=== PATIENT | male | born 1955 | race Caucasian/White ===

== ENCOUNTER 2017-09-08 11:04 | Inpatient (IN) | payer OTHER ==
[~2017-09-08] VITALS: Ht 177.8 cm; Wt 149.0 kg
[2017-09-08 11:07] VITALS: BP 130/94; PULSE 122; RESP 22; TEMP 97.4; O2SAT 99
[2017-09-08 12:15] VITALS: BP 128/92; PULSE 122; RESP 18; O2SAT 97
[2017-09-08] MEDS ORDERED: FAMOTIDINE 20 MG/2 ML VIAL IV PUSH ONE (12:45)
[2017-09-08] MEDS ORDERED: SODIUM CHLORID 0.9% 500 ML INJ 500 ML IV ONE (12:45)
[2017-09-08] MEDS ORDERED: ONDANSETRON HCL 4 MG/2 ML VIAL IVP ONE (12:45)
--- NOTE | 2017-09-08 12:53 | PD ---
HPI Chief Complaint: Abdominal Pain Time Seen by Provider: 12:26 Travel History International Travel<30 days: No Contact w/Intl Traveler<30days: No Traveled to known affect area: No History of Present Illness HPI 62-year-old male presents to the emergency department complaining of abdominal ' tightness', pain, intermittent diarrhea, or constipation for 2-3 weeks. States in addition, he has had associated shortness of breath and leg swelling. States his shortness of breath increases with exertion but is present at rest as well. Patient states that he has been unable to pass any flatulence and has had decreased bowel movements the last 2-3 weeks as well. He has nausea with vomiting especially after eating. States he has been able to keep any food down. Says he went to Urgent Care a couple of days ago and they were concerned about his leg swelling and advised he come to the ED for this. Denies chest pain or urinary symptoms. Patient's medical history significant for diabetes and high blood pressure. States his last colonoscopy was in 2006 here at [facility]. Patient denies the use of narcotic pain medications. PFSH Past Medical History Cardiovascular Problems: Yes Diabetes: Yes Social History Tobacco Use: No Allergies-Medications (Allergen,Severity, Reaction): Coded Allergies: azithromycin (Verified Allergy, Unknown, 09/08/17) Reported Meds & Prescriptions Reported Meds & Active Scripts Active Reported Hydrochlorothiazide Unknown Strength Tab 1 Tab PO DAILY Simvastatin Unknown Strength Tab 1 Tab PO HS Nifedipine ER 24 HR (Nifedipine) 30 Mg Tab 30 Mg PO DAILY Glimepiride Unknown Strength Tab 1 Tab PO DAILY Take with breakfast or first main meal Aspirin Unknown Strength Tab 1 Tab PO DAILY Metformin (Metformin HCl) 1,000 Mg Tab 1,000 Mg PO BIDPC Review of Systems Except as stated in HPI: all other systems reviewed are Neg Physical Exam Narrative GENERAL: Well-developed well-nourished in mild distress SKIN: Focused skin assessment warm/dry. HEAD: Atraumatic. Normocephalic. EYES: Pupils equal and round. No scleral icterus. No injection or drainage. ENT: No nasal bleeding or discharge. Mucous membranes pink and moist. NECK: Trachea midline. No JVD. CARDIOVASCULAR: Tachycardic rate and rhythm. No murmur appreciated. RESPIRATORY: No accessory muscle use. Clear to auscultation. Breath sounds equal bilaterally. GASTROINTESTINAL: Protuberant, distended abdomen, diffusely tender to light palpation, hypoactive bowel sounds, no caput medusa, rashes or lesions. MUSCULOSKELETAL: No obvious deformities. No clubbing. No cyanosis. No CVA tenderness, bilateral lower extremities with +1 edema NEUROLOGICAL: Awake and alert. No obvious cranial nerve deficits. Motor grossly within normal limits. Normal speech. PSYCHIATRIC: Appropriate mood and affect; insight and judgment normal. Data Data Last Documented VS Vital Signs Date Time Temp Pulse Resp B/P (MAP) Pulse Ox O2 Delivery O2 Flow Rate FiO2 09/08/17 18:16 93 17 132/77 (95) 95 Room Air 09/08/17 11:07 97.4 Orders Orders Complete Blood Count With Diff (09/08/17 12:36) Comprehensive Metabolic Panel (09/08/17 12:36) Lipase (09/08/17 12:36) Prothrombin Time / Inr (Pt) (09/08/17 12:36) Act Partial Throm Time (Ptt) (09/08/17 12:36) Urinalysis - C+S If Indicated (09/08/17 12:36) Ct Abd/Pel W Iv Contrast(Rout) (09/08/17 12:36) Iv Access Insert/Monitor (09/08/17 12:36) Ecg Monitoring (09/08/17 12:36) Oximetry (09/08/17 12:36) NPO (09/08/17 12:36) Ondansetron Inj (Zofran Inj) (09/08/17 12:45) Electrocardiogram (09/08/17 12:36) Chest, Single Ap (09/08/17 12:36) Famotidine Inj (Pepcid Inj) (09/08/17 12:45) Troponin I (09/08/17 12:36) Sodium Chlorid 0.9% 500 Ml Inj (Ns 500 M (09/08/17 12:45) B-Type Natriuretic Peptide (09/08/17 12:52) Iohexol 350 Inj (Omnipaque 350 Inj) (09/08/17 14:09) Furosemide Inj (Lasix Inj) (09/08/17 15:15) Admit Order (Ed Use Only) (09/08/17 18:19) Labs Laboratory Tests Test 09/08/17 12:45 09/08/17 13:02 White Blood Count 9.9 TH/MM3 Red Blood Count 4.50 MIL/MM3 Hemoglobin 14.1 GM/DL Hematocrit 41.4 % Mean Corpuscular Volume 92.1 FL Mean Corpuscular Hemoglobin 31.3 PG Mean Corpuscular Hemoglobin Concent 34.0 % Red Cell Distribution Width 15.4 % Platelet Count 217 TH/MM3 Mean Platelet Volume 9.5 FL Neutrophils (%) (Auto) 77.9 % Lymphocytes (%) (Auto) 13.2 % Monocytes (%) (Auto) 7.4 % Eosinophils (%) (Auto) 0.5 % Basophils (%) (Auto) 1.0 % Neutrophils # (Auto) 7.7 TH/MM3 Lymphocytes # (Auto) 1.3 TH/MM3 Monocytes # (Auto) 0.7 TH/MM3 Eosinophils # (Auto) 0.1 TH/MM3 Basophils # (Auto) 0.1 TH/MM3 CBC Comment DIFF FINAL Differential Comment Prothrombin Time 12.5 SEC Prothromb Time International Ratio 1.2 RATIO Activated Partial Thromboplast Time 23.4 SEC Blood Urea Nitrogen 21 MG/DL Creatinine 1.24 MG/DL Random Glucose 222 MG/DL Total Protein 7.2 GM/DL Albumin 3.7 GM/DL Calcium Level 9.1 MG/DL Alkaline Phosphatase 68 U/L Aspartate Amino Transf (AST/SGOT) 37 U/L Alanine Aminotransferase (ALT/SGPT) 63 U/L Total Bilirubin 0.9 MG/DL Sodium Level 137 MEQ/L Potassium Level 4.5 MEQ/L Chloride Level 102 MEQ/L Carbon Dioxide Level 24.9 MEQ/L Anion Gap 10 MEQ/L Estimat Glomerular Filtration Rate 59 ML/MIN Troponin I 0.03 NG/ML B-Type Natriuretic Peptide 663 PG/ML Lipase 130 U/L Urine Color YELLOW Urine Turbidity CLEAR Urine pH 5.5 Urine Specific [place] 1.029 Urine Protein 100 mg/dL Urine Glucose (UA) NEG mg/dL Urine Ketones NEG mg/dL Urine Occult Blood NEG Urine Nitrite NEG Urine Bilirubin NEG Urine Urobilinogen 2.0 MG/DL Urine Leukocyte Esterase NEG Urine RBC LESS THAN 1 /hpf Urine WBC 1 /hpf Urine Hyaline Casts 34 /lpf Urine Granular Casts 1 /lpf Urine Mucus FEW /lpf Microscopic Urinalysis Comment CULT NOT INDICATED MDM Medical Decision Making Medical Screen Exam Complete: Yes Emergency Medical Condition: Yes Differential Diagnosis SBO, pancreatitis, pyelonephritis, CHF, NSTEMI Narrative Course 62-year-old male presents to the emergency department complaining of abdominal ' tightness', pain, intermittent diarrhea, or constipation for 2-3 weeks. States in addition, he has had associated shortness of breath and leg swelling. States his shortness of breath increases with exertion but is present at rest as well. Patient states that he has been unable to pass any flatulence and has had decreased bowel movements the last 2-3 weeks as well. He has nausea with vomiting especially after eating. States he has been able to keep any food down. Says he went to Urgent Care a couple of days ago and they were concerned about his leg swelling and advised he come to the ED for this. Denies chest pain or urinary symptoms. Patient's medical history significant for diabetes and high blood pressure. States his last colonoscopy was in 2006 here at [facility]. Patient denies the use of narcotic pain medications. Vital signs-tachycardic at a rate of 122, BP stable at 128/92 EKG- sinus tachycardia Labs- BNP 663, INR 1.2, Lipase 130, ALT/AST 37/63 Pt will be NPO, 500NS IVF administered judiciously as I am concerned about a CHF presentation, however he states that he has had a poor oral intake for several weeks. Last Impressions Chest X-Ray 09/08/17 1236 Signed Impressions: Service Date/Time: Friday, September 08, 2017 13:10 - CONCLUSION: 1. Moderate cardiomegaly 2. Mild basilar air space disease 3. No evidence of free air. Rene Armijo MD Abdomen/Pelvis CT 09/08/17 1236 Signed Impressions: Service Date/Time: Friday, September 08, 2017 14:02 - CONCLUSION: 1. Bilateral effusions, mild ascites and developing anasarca 2. Hepatomegaly with diffuse abnormal hepatic texture. 3. 3 cm left adrenal myelolipoma status post cholecystectomy. Rene Armijo MD Interventions Lasix 40mg IV administered for CHF symptoms. Pt did feel better, less SOB after this medication. Last colonoscopy report demonstrated poor prep so visualized colon not easily characterized. According to notes, he had an US September 03 at an urgent care facility and was discharged and advised to follow up with a PCP and GI. Patient was walked in the emergency department today but was unable to walk without dyspnea. Patient will be admitted to observation for acute, new onset congestive heart failure. Diagnosis Primary Impression: Congestive heart failure Qualified Codes: I50.9 - Heart failure, unspecified Additional Impression: Hepatomegaly Admitting Information Admitting Physician Requests: Observation Condition: Stable Johana Westfall Sep 08, 2017 12:53
[2017-09-08 13:02] LABS: AUTOMATED NEUTROPHIL # 7.7 TH/MM3 (1.8-7.7); BASOPHIL # 0.1 TH/MM3 (0-0.2); EOSINOPHIL # 0.1 TH/MM3 (0-0.4); EOSINOPHIL % 0.5 % (0.0-4.0); HEMATOCRIT 41.4 % (39.0-51.0); HEMOGLOBIN 14.1 GM/DL (13.0-17.0); LYMPH % 13.2 % (9.0-44.0); LYMPHOCYTE # 1.3 TH/MM3 (1.0-4.8); MEAN CELL VOLUME 92.1 FL (80.0-100.0); MEAN CORPUSCULAR HEMOGLOBIN 31.3 PG (27.0-34.0); MEAN PLATELET VOLUME 9.5 FL (7.0-11.0); MONO % 7.4 % (0.0-8.0); MONOCYTE # 0.7 TH/MM3 (0-0.9); NEUT % 77.9 % (16.0-70.0); PLATELET COUNT 217 TH/MM3 (150-450); RED CELL DISTRIBUTION WIDTH 15.4 % (11.6-17.2); WHITE BLOOD COUNT 9.9 TH/MM3 (4.0-11.0)
[2017-09-08 13:08] LABS: INTERNATIONAL NORMALIZED RATIO 1.2 RATIO; PROTHROMBIN TIME - PATIENT 12.5 SEC (9.8-11.6)
[2017-09-08 13:18] LABS: ALT (GPT) 63 U/L (12-78)
[2017-09-08 13:22] LABS: ALKALINE PHOSPHATASE 68 U/L (45-117); TOTAL BILIRUBIN ADULT 0.9 MG/DL (0.2-1.0); TOTAL PROTEIN 7.2 GM/DL (6.4-8.2); TROPONIN I 0.03 NG/ML (0.02-0.05)
[2017-09-08 13:26] LABS: ALBUMIN 3.7 GM/DL (3.4-5.0); AST (GOT) 37 U/L (15-37); BICARBONATE 24.9 MEQ/L (21.0-32.0); BLOOD UREA NITROGEN 21 MG/DL (7-18); CALCIUM 9.1 MG/DL (8.5-10.1); CHLORIDE 102 MEQ/L (98-107); CREATININE 1.24 MG/DL (0.60-1.30); GLOMERULAR FILTRATION RATE 59 ML/MIN (>89); GLUCOSE,RANDOM 222 MG/DL (74-106); SODIUM (NA) 137 MEQ/L (136-145)
[2017-09-08 13:28] LABS: BILIRUBIN, URINE NEG (NEG); BLOOD, URINE NEG (NEG); GLUCOSE,URINE NEG (NEG); HYALINE CAST, URINE 34 /lpf (RARE); KETONE, URINE NEG (NEG); MUCUS URINE FEW /lpf (OCC); NITRITE,URINE NEG (NEG); PH, URINE 5.5 (5.0-8.5); URINE COLOR YELLOW (YELLW/STRAW); URINE LEUKOCYTE ESTERASE NEG (NEG)
--- NOTE | 2017-09-08 13:42 | RADRPT ---
EXAM DATE/TIME: 09/08/2017 13:10 [facility] COMPARISON: No previous studies available for comparison. INDICATIONS : Possible free air- Shortness of breath. MEDICAL HISTORY : Diabetes. SURGICAL HISTORY : None. ENCOUNTER: Initial ACUITY: 3 days PAIN SCORE: 0/10 LOCATION: Bilateral chest FINDINGS: Heart is moderately enlarged. Mild bibasilar airspace disease is noted. Mid to upper lung zones are c lear. Osseous structures are intact. There is no evidence of free air CONCLUSION: 1. Moderate cardiomegaly 2. Mild basilar air space disease 3. No evidence of free air. Rene Armijo MD on September 08, 2017 at 13:37 Board Certified Radiologist. This report was verified electronically.
[2017-09-08] MEDS ORDERED: IOHEXOL 350 MG/ML 10 ML VIAL (for RAD DIAG) IVCONTRAST ONE (14:09)
--- NOTE | 2017-09-08 14:41 | RADRPT ---
EXAM DATE/TIME: 09/08/2017 14:02 [facility] COMPARISON: No previous studies available for comparison. INDICATIONS : Abdominal pain, leg swelling. IV CONTRAST: 82 cc Omnipaque 350 (iohexol) IV ORAL CONTRAST: No oral contrast ingested. RADIATION DOSE: 17.03 CTDIvol (mGy) MEDICAL HISTORY : Cardiovascular disease. diabetes SURGICAL HISTORY : None. ENCOUNTER: Initial ACUITY: 2 weeks PAIN SCALE: 4/10 LOCATION: Bilateral upper quadrant TECHNIQUE: Volumetric scanning of the abdomen and pelvis was performed. Using automated exposure control and ad justment of the mA and/or kV according to patient size, radiation dose was kept as low as reasonably achievable to obtain optimal diagnostic quality images. DICOM format image data is available electro nically for review and comparison. FINDINGS: LOWER LUNGS: Bilateral effusions are noted. There is a small to moderate effusion on the right and a small effusio n on the left. LIVER: Liver is mildly enlarged and has a diffuse heterogeneous texture. No focal lesions or evidence of emperatriz iary duct dilatation. Postcholecystectomy clips are noted. Small amount of free fluid is identified i n the peritoneal cavity SPLEEN: Normal size without lesion. PANCREAS: Within normal limits. KIDNEYS: Normal in size and shape. There is no mass, stone or hydronephrosis. ADRENAL GLANDS: A fat containing nodule is identified in the left adrenal gland measuring 3.3 cm. VASCULAR: There is no aortic aneurysm. BOWEL/MESENTERY: The stomach, small bowel, and colon demonstrate no acute abnormality. There is no free intraperitone al air or fluid. ABDOMINAL WALL: Edematous changes was identified in the abdominal wall. RETROPERITONEUM: There is no lymphadenopathy. BLADDER: No wall thickening or mass. REPRODUCTIVE: Within normal limits. INGUINAL: There is no lymphadenopathy or hernia. MUSCULOSKELETAL: Within normal limits for patient age. CONCLUSION: 1. Bilateral effusions, mild ascites and developing anasarca 2. Hepatomegaly with diffuse abnormal hepatic texture. 3. 3 cm left adrenal myelolipoma status post cholecystectomy. Rene Armijo MD on September 08, 2017 at 14:31 Board Certified Radiologist. This report was verified electronically.
[2017-09-08 14:44] VITALS: BP 137/84; PULSE 119; RESP 18; O2SAT 95
[2017-09-08] MEDS ORDERED: FUROSEMIDE 40 MG/4 ML VIAL IV PUSH ONE (15:15)
[2017-09-08 18:16] VITALS: BP 132/77; PULSE 93; RESP 17; O2SAT 95
[2017-09-08] MEDS ORDERED: NALOXONE HCL 0.4 MG/ML AMP IV PUSH PRN (18:30)
[2017-09-08] MEDS ORDERED: ENALAPRILAT 2.5 MG/2 ML VIAL IV PUSH PRN (18:30)
[2017-09-08] MEDS ORDERED: RESP: ALBUTEROL 2.5 MG/IPRATROPIUM 0.5 MG NEB (PRN) NEB (18:30)
[2017-09-08] MEDS ORDERED: SODIUM CHLORIDE 0.9% FLUSH 10 ML FLUSH IV FLUSH PRN (18:30)
[2017-09-08] MEDS ORDERED: DEXTROSE 50% IN WATER 50 ML VIAL(D50) IV PUSH PRN (18:30)
[2017-09-08] MEDS ORDERED: ACETAMINOPHEN 325 MG TAB PO PRN (18:30)
[2017-09-08] MEDS ORDERED: GLUCAGON 1 MG/ML VIAL OTHER PRN (18:30)
[2017-09-08] MEDS ORDERED: ACETAMINOPHEN/HYDROcodone 325 MG/5 MG TAB PO PRN (18:30)
--- NOTE | 2017-09-08 18:33 | HHI.HP ---
HPI [facility] Primary Care Physician Toribio Rocha, Admission Diagnosis Acute CHF Diagnoses: (1) Congestive heart failure (2) Hepatomegaly (3) Ascites Chief Complaint: Abdominal bloating, shortness of breath Travel History International Travel<30 Days: No Contact w/Intl Traveler <30 Da: No Traveled to Known Affected Are: No History of Present Illness 62-year-old male with a history of diabetes type 2, hypertension, hyperlipidemia presented to the ED for evaluation of 3 weeks history of abdominal bloating, shortness of breath and constipation. She states, is been having intermittent diarrhea and constipation over the past 3 weeks and was seen by his PCP however was treated with [id number] medications. He reports severe dyspnea at rest as well as on exertion along with associates lower extremity edema. Patient's went to a local urgent care a few days ago was advised to come to the ED for further evaluation secondary to possible ascites. In the ED, patient was found to have a BNP of over 600+ and CT abdomen with evidence of hepatomegaly and ascites. 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 He reported that his last colonoscopy was in 2006. He denies any GI bleed. He denies any history of alcohol abuse. Review of Systems Except as stated in HPI: all other systems reviewed are Neg Past Family Social History Past Medical History Diabetes type 2 X Hypertension Hyperlipidemia Past Surgical History Cholecystectomy Reported Medications Metformin 1000 twice a day Lipitor Nifedipine Hydrochlorothiazide Allergies: Coded Allergies: azithromycin (Verified Allergy, Unknown, 09/08/17) Family History Family history not known as patient was adopted Social History He denies tobacco, alcohol or illicit drug intake. Physical Exam Vital Signs Vital Signs Date Time Temp Pulse Resp B/P (MAP) Pulse Ox O2 Delivery O2 Flow Rate FiO2 09/08/17 18:16 93 17 132/77 (95) 95 Room Air 09/08/17 14:44 119 18 137/84 (101) 95 Room Air 09/08/17 12:15 122 18 128/92 (104) 97 Room Air 09/08/17 11:07 97.4 122 22 130/94 (106) 99 Room Air Physical Exam GENERAL: This is a well-nourished, well-developed patient, in no apparent distress. SKIN: No rashes, ecchymoses or lesions. Cool and dry. HEAD: Atraumatic. Normocephalic. No temporal or scalp tenderness. EYES: Pupils equal round and reactive. Extraocular motions intact. No scleral icterus. No injection or drainage. ENT: Nose without bleeding, purulent drainage or septal hematoma. Throat without erythema, tonsillar hypertrophy or exudate. Uvula midline. Airway patent. NECK: Trachea midline. No JVD or lymphadenopathy. Supple, nontender, no meningeal signs. CARDIOVASCULAR: Regular rate and rhythm without murmurs, gallops, or rubs. RESPIRATORY: Clear to auscultation. Breath sounds equal bilaterally. No wheezes , rales, or rhonchi. GASTROINTESTINAL: Abdomen soft, non-tender, nondistended. No hepato-splenomegaly , or palpable masses. No guarding. MUSCULOSKELETAL: Extremities without clubbing, cyanosis, or edema. No joint tenderness, effusion, or edema noted. No calf tenderness. Negative Homans sign bilaterally. NEUROLOGICAL: Awake and alert. Cranial nerves II through XII intact. Motor and sensory grossly within normal limits. Five out of 5 muscle strength in all muscle groups. Normal speech. Laboratory Laboratory Tests Test 09/08/17 12:45 09/08/17 13:02 White Blood Count 9.9 Red Blood Count 4.50 Hemoglobin 14.1 Hematocrit 41.4 Mean Corpuscular Volume 92.1 Mean Corpuscular Hemoglobin 31.3 Mean Corpuscular Hemoglobin Concent 34.0 Red Cell Distribution Width 15.4 Platelet Count 217 Mean Platelet Volume 9.5 Neutrophils (%) (Auto) 77.9 Lymphocytes (%) (Auto) 13.2 Monocytes (%) (Auto) 7.4 Eosinophils (%) (Auto) 0.5 Basophils (%) (Auto) 1.0 Neutrophils # (Auto) 7.7 Lymphocytes # (Auto) 1.3 Monocytes # (Auto) 0.7 Eosinophils # (Auto) 0.1 Basophils # (Auto) 0.1 CBC Comment DIFF FINAL Differential Comment Prothrombin Time 12.5 Prothromb Time International Ratio 1.2 Activated Partial Thromboplast Time 23.4 Blood Urea Nitrogen 21 Creatinine 1.24 Random Glucose 222 Total Protein 7.2 Albumin 3.7 Calcium Level 9.1 Alkaline Phosphatase 68 Aspartate Amino Transf (AST/SGOT) 37 Alanine Aminotransferase (ALT/SGPT) 63 Total Bilirubin 0.9 Sodium Level 137 Potassium Level 4.5 Chloride Level 102 Carbon Dioxide Level 24.9 Anion Gap 10 Estimat Glomerular Filtration Rate 59 Troponin I 0.03 B-Type Natriuretic Peptide 663 Lipase 130 Urine Color YELLOW Urine Turbidity CLEAR Urine pH 5.5 Urine Specific [place] 1.029 Urine Protein 100 Urine Glucose (UA) NEG Urine Ketones NEG Urine Occult Blood NEG Urine Nitrite NEG Urine Bilirubin NEG Urine Urobilinogen 2.0 Urine Leukocyte Esterase NEG Urine RBC LESS THAN 1 Urine WBC 1 Urine Hyaline Casts 34 Urine Granular Casts 1 Urine Mucus FEW Microscopic Urinalysis Comment CULT NOT INDICATED Result Diagram: 09/08/17 1245 09/08/17 1245 Imaging Last Impressions Chest X-Ray 09/08/17 1236 Signed Impressions: Service Date/Time: Friday, September 08, 2017 13:10 - CONCLUSION: 1. Moderate cardiomegaly 2. Mild basilar air space disease 3. No evidence of free air. Rene Armijo MD Abdomen/Pelvis CT 09/08/17 1236 Signed Impressions: Service Date/Time: Friday, September 08, 2017 14:02 - CONCLUSION: 1. Bilateral effusions, mild ascites and developing anasarca 2. Hepatomegaly with diffuse abnormal hepatic texture. 3. 3 cm left adrenal myelolipoma status post cholecystectomy. Rene Armijo MD Septic Shock Reassessment Septic shock perfusion: reassessment completed Caprini VTE Risk Assessment Caprini VTE Risk Assessment: No/Low Risk (score <= 1) Caprini Risk Assessment Model Point Value = 1 Point Value = 2 Point Value = 3 Point Value = 5 Age 41-60 Minor surgery BMI > 25 kg/m2 Swollen legs Varicose veins or History of unexplained or recurrent spontaneous Oral contraceptives or hormone replacement Sepsis (< 1 month) Serious lung disease, including pneumonia (< 1 month) Abnormal pulmonary function Acute myocardial infarction Congestive heart failure (< 1 month) History of inflammatory bowel disease Medical patient at bed rest Age 61-74 Arthroscopic surgery Major open surgery (> 45 min) Laparoscopic surgery (> 45 min) Malignancy Confined to bed (> 72 hours) Immobilizing plaster cast Central venous access Age >= 75 History of VTE Family history of VTE Factor V Leiden Prothrombin [id number] Lupus anticoagulant Anticardiolipin antibodies Elevated serum homocysteine Heparin-induced thrombocytopenia Other congenital or acquired thrombophilia Stroke (< 1 month) Elective arthroplasty Hip, pelvis, or leg fracture Acute spinal cord injury (< 1 month) Prophylaxis Regimen Total Risk Factor Score Risk Level Prophylaxis Regimen 0-1 Low Early ambulation 2 Moderate Order ONE of the following: *Sequential Compression Device (SCD) *Heparin 5000 units SQ BID 3-4 Higher Order ONE of the following medications: *Heparin 5000 units SQ TID *Enoxaparin/Lovenox 40 mg SQ daily (WT < 150 kg, CrCl > 30 mL/min) *Enoxaparin/Lovenox 30 mg SQ daily (WT < 150 kg, CrCl > 10-29 mL/min) *Enoxaparin/Lovenox 30 mg SQ BID (WT < 150 kg, CrCl > 30 mL/min) AND/OR *Sequential Compression Device (SCD) 5 or more Highest Order ONE of the following medications: *Heparin 5000 units SQ TID (Preferred with Epidurals) *Enoxaparin/Lovenox 40 mg SQ daily (WT < 150 kg, CrCl > 30 mL/min) *Enoxaparin/Lovenox 30 mg SQ daily (WT < 150 kg, CrCl > 10-29 mL/min) *Enoxaparin/Lovenox 30 mg SQ BID (WT < 150 kg, CrCl > 30 mL/min) AND *Sequential Compression Device (SCD) Assessment and Plan Problem List: (1) Congestive heart failure ICD Code: I50.9 - Heart failure, unspecified Status: Acute (2) Ascites ICD Code: R18.8 - Other ascites Assessment and Plan 62-year-old man with New onset congestive heart failure of unknown type Chest x-ray noted and review by me with moderated cardiomegaly Rule out ACS per protocol with serial cardiac enzyme and EKGs Check 2-D echo Start Lasix IV, strict I's and O's Bilateral pleural effusions CT abdomen noted and review by me with finding of bilateral pleural effusion Will check chest ultrasound to determine if patient needs thoracentesis Treatment with Lasix as in above Diabetes type 2 Labile blood glucose Hold oral hypoglycemic agent and Start insulin sliding scale Check hemoglobin A1c Hypertension Resume nifedipine New onset Ascites CT abdomen/pelvis with finding of mild ascites Unclear etiology Recommend Abdominal paracentesis with appropriate ascitic fluid analysis to diagnose the etiology Hepatitis profile pending Started on IV Lasix however consider adding Aldactone DVT prophylaxis: B-SCDs Code Status Full code Discussed Condition With Patient, ED PA Problem Qualifiers (1) Congestive heart failure: Qualified Codes: I50.9 - Heart failure, unspecified Luis Allne MD Sep 08, 2017 18:33
[2017-09-08] MEDS ORDERED: METF1000 PO (18:42)
[2017-09-08] MEDS ORDERED: HYDR25TA5 PO (19:26)
[2017-09-08] MEDS ORDERED: ASPI-183 PO (19:26)
[2017-09-08] MEDS ORDERED: GLIM1TAB PO (19:26)
[2017-09-08] MEDS ORDERED: SIMV5TAB3 PO (19:26)
[2017-09-08] MEDS ORDERED: NIFE30TA61 PO (19:26)
[2017-09-08] MEDS: RESP: ALBUTEROL 2.5 MG/IPRATROPIUM 0.5 MG NEB (SCH) NEB (19:28)
[2017-09-08 19:55] LABS: TROPONIN I 0.04 NG/ML (0.02-0.05)
--- NOTE | 2017-09-08 20:25 | RADRPT ---
EXAM DATE/TIME: 09/08/2017 19:49 [facility] COMPARISON: No previous studies available for comparison. INDICATIONS : Shortness of breath. MEDICAL HISTORY : Hypertension. Glasses. Diabetes. SURGICAL HISTORY : None. ENCOUNTER: Initial ACUITY: 1 week PAIN SCORE: 3/10 LOCATION: Right chest MEASUREMENTS: SKIN TO PARIETAL PLEURA: 4.0 cm SKIN TO MAX SAFE DEPTH: 5.8 cm ESTIMATED FLUID VOLUME: 826 cc FLUID COMPOSITION: simple FINDINGS: A moderate amount of pleural fluid was confirmed sonographically on the right there CONCLUSION: Moderate pleural effusion confirmed sonographically on the right. Valeriano Stone MD on September 08, 2017 at 20:21 Board Certified Radiologist. This report was verified electronically.
[2017-09-08 20:35] VITALS: BP 118/74; PULSE 115; RESP 17; TEMP 97.9; O2SAT 95
--- NOTE | 2017-09-08 20:56 | RADRPT ---
EXAM DATE/TIME: 09/08/2017 19:44 [facility] COMPARISON: No previous studies available for comparison. INDICATIONS : Shortness of breath. MEDICAL HISTORY : Hypertension. Glasses. Diabetes. SURGICAL HISTORY : None. ENCOUNTER: Initial ACUITY: 1 week PAIN SCORE: 3/10 LOCATION: Left chest MEASUREMENTS: SKIN TO PARIETAL PLEURA: 4.1 cm SKIN TO MAX SAFE DEPTH: 4.7 cm ESTIMATED FLUID VOLUME: 221.45 cc FLUID COMPOSITION: simple FINDINGS: A small left pleural effusion was confirmed sonographically. CONCLUSION: Small left pleural effusion confirmed sonographically. Valeriano Stone MD on September 08, 2017 at 20:53 Board Certified Radiologist. This report was verified electronically.
[2017-09-08 22:58] VITALS: BP 129/85; PULSE 107; RESP 17; TEMP 97.6; O2SAT 94
[2017-09-08] MEDS: SODIUM CHLORIDE 0.9% FLUSH 10 ML FLUSH IV FLUSH SCH (23:14)
[2017-09-08] MEDS: ATORVASTATIN 10 MG TAB PO SCH (23:14)
[2017-09-08] MEDS: INSULIN ASPART SUPPLEMENTAL SCALE SQ SCH (23:15)
[2017-09-09] MEDS: MAGNESIUM HYDROXIDE SUSP 30 ML CUP PO PRN (00:29)
[2017-09-09 01:44] LABS: AUTOMATED NEUTROPHIL # 6.5 TH/MM3 (1.8-7.7); BASOPHIL # 0.1 TH/MM3 (0-0.2); BASOPHIL % 1.1 % (0.0-2.0); EOSINOPHIL # 0.1 TH/MM3 (0-0.4); EOSINOPHIL % 0.8 % (0.0-4.0); HEMATOCRIT 40.9 % (39.0-51.0); HEMOGLOBIN 13.5 GM/DL (13.0-17.0); LYMPH % 19.9 % (9.0-44.0); LYMPHOCYTE # 1.8 TH/MM3 (1.0-4.8); MEAN CELL VOLUME 92.6 FL (80.0-100.0); MEAN CORPUSCULAR HEMOGLOBIN 30.5 PG (27.0-34.0); MEAN CORPUSCULAR HGB CONC 32.9 % (32.0-36.0); MEAN PLATELET VOLUME 9.5 FL (7.0-11.0); MONO % 6.4 % (0.0-8.0); MONOCYTE # 0.6 TH/MM3 (0-0.9); NEUT % 71.8 % (16.0-70.0); PLATELET COUNT 226 TH/MM3 (150-450); RED BLOOD COUNT 4.41 MIL/MM3 (4.50-5.90); RED CELL DISTRIBUTION WIDTH 15.5 % (11.6-17.2)
[2017-09-09 01:55] LABS: INTERNATIONAL NORMALIZED RATIO 1.3 RATIO; PROTHROMBIN TIME - PATIENT 12.7 SEC (9.8-11.6)
[2017-09-09 02:05] LABS: ALBUMIN 3.6 GM/DL (3.4-5.0); AST (GOT) 27 U/L (15-37); BICARBONATE 25.4 MEQ/L (21.0-32.0); BLOOD UREA NITROGEN 24 MG/DL (7-18); CALCIUM 8.3 MG/DL (8.5-10.1); CHLORIDE 104 MEQ/L (98-107); CHOLESTEROL 97 MG/DL (120-200); CREATININE 1.26 MG/DL (0.60-1.30); GLOMERULAR FILTRATION RATE 58 ML/MIN (>89); GLUCOSE,RANDOM 211 MG/DL (74-106); SODIUM (NA) 138 MEQ/L (136-145); TRIGLYCERIDES 58 MG/DL (42-150)
[2017-09-09 02:08] LABS: ALKALINE PHOSPHATASE 67 U/L (45-117); ALT (GPT) 60 U/L (12-78); CHOLESTEROL/ HDL RATIO 4.87 RATIO; HDL CHOLESTEROL 19.9 MG/DL (40.0-60.0); LDL CHOLESTEROL 66 MG/DL (0-99); TOTAL BILIRUBIN ADULT 0.6 MG/DL (0.2-1.0); TOTAL PROTEIN 6.9 GM/DL (6.4-8.2); TROPONIN I 0.04 NG/ML (0.02-0.05)
[2017-09-09 03:38] VITALS: BP 144/85; PULSE 113; RESP 16; TEMP 97.9; O2SAT 98
[2017-09-09] MEDS ORDERED: ONDANSETRON HCL 4 MG/2 ML VIAL IV PUSH PRN (04:00)
[2017-09-09] MEDS: RESP: ALBUTEROL 2.5 MG/IPRATROPIUM 0.5 MG NEB (SCH) NEB ×3 (07:32→19:52)
[2017-09-09 08:13] VITALS: BP 132/71; PULSE 115; RESP 20; TEMP 98.2; O2SAT 20
--- NOTE | 2017-09-09 08:35 | RADRPT ---
EXAM DATE/TIME: 09/09/2017 07:58 [facility] COMPARISON: No previous studies available for comparison. EXTERNAL COMPARISON : [facility], US ABDOMEN COMPLETE, September 06, 2017. INDICATIONS : Ascites. MEDICAL HISTORY : Hypertension. Diabetes. Ascites. SURGICAL HISTORY : Paracentesis. ENCOUNTER: Subsequent ACUITY: 3 days PAIN SCORE: 4/10 LOCATION: Abdomen. AREA EVALUATED: Abdominal quadrants. FINDINGS: Imaging of the abdomen and pelvis was performed to evaluate for ascites for possible paracentesis. Mi nimal fluid in the right lower quadrant. No fluid is seen within the other 3 quadrants of the abdomen . CONCLUSION: Minimal ascites but not enough to safely perform paracentesis. Luis Enriquez MD on September 09, 2017 at 8:31 Board Certified Radiologist. This report was verified electronically.
[2017-09-09] MEDS: FUROSEMIDE 40 MG/4 ML VIAL IV PUSH SCH ×2 (09:40→18:24)
[2017-09-09] MEDS: NIFEdipine 30 MG SUSTAINED RELEASE TAB PO SCH (09:40)
[2017-09-09] MEDS: SODIUM CHLORIDE 0.9% FLUSH 10 ML FLUSH IV FLUSH SCH ×2 (09:41→21:20)
[2017-09-09] MEDS: INSULIN ASPART SUPPLEMENTAL SCALE SQ SCH ×4 (09:41→21:00)
--- NOTE | 2017-09-09 10:29 | HHI.PR ---
Subjective Remarks Follow-up visit HTN, HLD, new onset CHF, abdominal bloating, constipation. Patient seen and examined today reports continues to have abdominal bloating. States no bowel movement 5 days. Requesting for enema. Patient states that she was told his liver is not doing well but he doesn't have any symptoms of pain in the abdomen. He occasionally has nausea and vomiting and states he vomited last time in a parking lot. States she has hiatal hernia diagnosed several years back. Otherwise, denies chest pain, palpitations, headaches, dizziness. Denies any fevers, chills. Denies any shortness of breath or dyspnea. Relating well. Objective Vitals Vital Signs Date Time Temp Pulse Resp B/P (MAP) Pulse Ox O2 Delivery O2 Flow Rate FiO2 09/09/17 08:13 98.2 115 20 132/71 (91) 20 09/09/17 03:38 97.9 113 16 144/85 (104) 98 09/08/17 22:58 97.6 107 17 129/85 (100) 94 09/08/17 20:35 97.9 115 17 118/74 (89) 95 09/08/17 19:36 09/08/17 18:16 93 17 132/77 (95) 95 Room Air 09/08/17 14:44 119 18 137/84 (101) 95 Room Air 09/08/17 12:15 122 18 128/92 (104) 97 Room Air 09/08/17 11:07 97.4 122 22 130/94 (106) 99 Room Air I/O 09/08/17 09/08/17 09/08/17 09/09/17 09/09/17 09/09/17 07:00 15:00 23:00 07:00 15:00 23:00 Intake Total 500 ml Output Total 550 ml Balance 500 ml -550 ml Intake IV Total 500 ml Output Urine Total 550 ml Result Diagram: 09/09/17 0125 09/09/17 0125 Imaging Last Impressions Abdomen Ultrasound 09/09/17 0000 Signed Impressions: Service Date/Time: Saturday, September 09, 2017 07:58 - CONCLUSION: Minimal ascites but not enough to safely perform paracentesis. Luis Enriquez MD Chest X-Ray 09/08/17 1236 Signed Impressions: Service Date/Time: Friday, September 08, 2017 13:10 - CONCLUSION: 1. Moderate cardiomegaly 2. Mild basilar air space disease 3. No evidence of free air. Rene Armijo MD Abdomen/Pelvis CT 09/08/17 1236 Signed Impressions: Service Date/Time: Friday, September 08, 2017 14:02 - CONCLUSION: 1. Bilateral effusions, mild ascites and developing anasarca 2. Hepatomegaly with diffuse abnormal hepatic texture. 3. 3 cm left adrenal myelolipoma status post cholecystectomy. Rene Armijo MD Chest Ultrasound 09/08/17 0000 Signed Impressions: Service Date/Time: Friday, September 08, 2017 19:44 - CONCLUSION: Small left pleural effusion confirmed sonographically. Valeriano Stone MD Objective Remarks GENERAL: This is a well-nourished, well-developed patient, in no apparent distress. SKIN: Warm and dry HEENT: Normocephalic. Pupils equal round and reactive. Nose without bleeding. Airway patent. NECK: Trachea midline. No JVD. Supple. CARDIOVASCULAR: Regular rate and rhythm without murmurs, gallops, or rubs. RESPIRATORY: Diminished bases. No wheezes, rales, or rhonchi. GASTROINTESTINAL: Abdomen soft, non-tender. Bowel Sounds hypoactive. Abdominal distention noted. MUSCULOSKELETAL: Extremities without clubbing, cyanosis. NEUROLOGICAL: Awake and alert. Oriented to time, place, person. No focal neuro deficit. Moves all extremities. Normal speech. A/P Problem List: (1) Congestive heart failure ICD Code: I50.9 - Heart failure, unspecified Status: Acute (2) Ascites ICD Code: R18.8 - Other ascites Assessment and Plan 62-year-old male with a history of diabetes type 2, hypertension, hyperlipidemia presented to the ED for evaluation of 3 weeks history of abdominal bloating, shortness of breath and constipation. New onset congestive heart failure of unknown type - Chest x-ray noted and review by me with moderated cardiomegaly - Rule out ACS per protocol with serial cardiac enzyme and EKGs - Check 2-D echo, pending results - Start Lasix IV, strict I's and O's Constipation, abdominal bloating - Lactulose 1 dose now, enema 1 dose - Bowel regimen continue. Monitor for BM Bilateral pleural effusions - CT abdomen noted and review by me with finding of bilateral pleural effusion - Will check chest ultrasound to determine if patient needs thoracentesis - Treatment with Lasix as in above Diabetes type 2 - Held Home medication metformin 1000 mg twice a day, and glimepiride - Insulin sliding scale, - Check hemoglobin A1c - Start Levemir 5units daily at bedtime Hypertension - Resume nifedipine New onset Ascites - CT abdomen/pelvis with finding of mild ascites - Unclear etiology - Recommend Abdominal paracentesis with appropriate ascitic fluid analysis to diagnose the etiology. Ultrasound of the abdomen showed minimal ascites not enough to safely perform paracentesis. - Hepatitis profile pending. Liver enzymes within normal. - Started on IV Lasix , will add Aldactone DVT prophylaxis: B-SCDs Discharge Planning Pending ECHO Problem Qualifiers (1) Congestive heart failure: Qualified Codes: I50.9 - Heart failure, unspecified Consuelo Vilchis Sep 09, 2017 10:29
[2017-09-09] MEDS ORDERED: SOD PHOSPHATE/SOD BIPHOSPHATE (ADULT) ENEMA 133ML RECTAL ONE (10:30)
[2017-09-09] MEDS ORDERED: LACTULOSE SYRUP 20 GM/30 ML CUP PO ONE (10:30)
[2017-09-09] MEDS: SPIRONOLACTONE 25 MG TAB PO SCH (11:56)
[2017-09-09] MEDS: DOCUSATE SODIUM 50 MG/SENNA 8.6 MG TAB PO SCH ×2 (12:00→21:20)
[2017-09-09 13:13] LABS: HEMOGLOBIN A1C 6.9 % (4.3-6.0)
--- NOTE | 2017-09-09 14:08 | EKG ---
Date Performed: 09/08/2017 Time Performed: 14:31:36 PTAGE: 62 years EKG: SINUS TACHYCARDIA WITH one couplet of premature ventricular Contractions. MARKED RIGHT AXIS DEVIATION Generalized low voltage. Nonspecific ST-T wave change. Poor R wave progression across the precordium. When compared to previous tracing, these changes are new. Previos tracing did show low li mb lead voltage. Clinical corrolation is suggested. ABNORMAL ECG PREVIOUS TRACING : 06/06/2007 10.25 DOCTOR: Cornelio Monge Interpretating Date/Time 09/09/2017 14:07:47
--- NOTE | 2017-09-09 14:10 | EKG ---
Date Performed: 09/09/2017 Time Performed: 02:07:13 PTAGE: 62 years EKG: SINUS TACHYCARDIA POSSIBLE LEFT ATRIAL ENLARGEMENT MARKED RIGHT AXIS DEVIATION LOW QRS VOLT AGE POSSIBLE ANTERIOR MYOCARDIAL INFARCTION. When compared to previous tracing, premature ventricular Contractions are no longer present, otherwise no significant Change. ABNORMAL ECG PREVIOUS TRACING : 09/08/2017 19.07 DOCTOR: Cornelio Monge Interpretating Date/Time 09/09/2017 14:09:35
--- NOTE | 2017-09-09 14:10 | EKG ---
Date Performed: 09/08/2017 Time Performed: 19:07:00 PTAGE: 62 years EKG: SINUS TACHYCARDIA WITH OCCASIONAL VENTRICULAR PREMATURE COMPLEXES POSSIBLE LEFT ATRIAL ENLA RGEMENT MARKED RIGHT AXIS DEVIATION LOW QRS VOLTAGE POSSIBLE ANTERIOR MYOCARDIAL INFARCTION Since pre vious tracing, no significant change noted ABNORMAL ECG PREVIOUS TRACING : 09/08/2017 14.31 DOCTOR: Cornelio Monge Interpretating Date/Time 09/09/2017 14:08:11
[2017-09-09 15:31] VITALS: BP 130/70; PULSE 113; RESP 20; TEMP 97.9; O2SAT 96
[2017-09-09 21:01] VITALS: BP 122/83; PULSE 113; RESP 17; TEMP 98.2; O2SAT 94
[2017-09-09] MEDS: ATORVASTATIN 10 MG TAB PO SCH (21:19)
[2017-09-09] MEDS: guaiFENesin/CODEINE SYRUP 200 MG/20 MG/10 ML CUP PO PRN (21:19)
[2017-09-09 23:45] VITALS: BP 121/74; PULSE 111; RESP 18; TEMP 98.4; O2SAT 95
[2017-09-10 04:12] VITALS: BP 113/77; PULSE 102; RESP 18; TEMP 98; O2SAT 96
[2017-09-10 07:21] VITALS: BP 130/82; PULSE 109; RESP 20; TEMP 98; O2SAT 96
[2017-09-10] MEDS: RESP: ALBUTEROL 2.5 MG/IPRATROPIUM 0.5 MG NEB (SCH) NEB ×3 (07:58→22:01)
[2017-09-10] MEDS: INSULIN ASPART SUPPLEMENTAL SCALE SQ SCH ×4 (08:00→20:24)
--- NOTE | 2017-09-10 09:24 | HHI.PR ---
Subjective Remarks Follow-up visit HTN, HLD, new onset CHF, Ascites. Patient seen and examined today. Reports he is doing okay. Requesting to go home. Discussed and explained with patient that she needs his echocardiogram done to be able to evaluate his heart function. Discuss plan for diagnostic for today including US of the liver. Patient verbalized understanding. Denies pain and discomfort. Denies SOB/ dyspnea. Denies chest pain, palpitations, headaches, dizziness. Denies fevers, chills, n/v/d. Objective Vitals Vital Signs Date Time Temp Pulse Resp B/P (MAP) Pulse Ox O2 Delivery O2 Flow Rate FiO2 09/10/17 07:21 98.0 109 20 130/82 (98) 96 09/10/17 04:12 98.0 102 18 113/77 (89) 96 09/09/17 23:45 98.4 111 18 121/74 (90) 95 09/09/17 21:01 98.2 113 17 122/83 (96) 94 09/09/17 15:31 97.9 113 20 130/70 (90) 96 Result Diagram: 09/09/17 0125 09/09/17 0125 Imaging Last Impressions Liver Ultrasound 09/10/17 0000 Signed Impressions: Service Date/Time: Sunday, September 10, 2017 09:53 - CONCLUSION: 1. Enlarged echogenic liver likely hepatic steatosis/hepatocellular dysfunction. 2. Nonvisualization of pancreas. 3. Status post cholecystectomy. Luis Enriquez MD Abdomen Ultrasound 09/09/17 0000 Signed Impressions: Service Date/Time: Saturday, September 09, 2017 07:58 - CONCLUSION: Minimal ascites but not enough to safely perform paracentesis. Luis Enriquez MD Chest X-Ray 09/08/17 1236 Signed Impressions: Service Date/Time: Friday, September 08, 2017 13:10 - CONCLUSION: 1. Moderate cardiomegaly 2. Mild basilar air space disease 3. No evidence of free air. Rene Armijo MD Abdomen/Pelvis CT 09/08/17 1236 Signed Impressions: Service Date/Time: Friday, September 08, 2017 14:02 - CONCLUSION: 1. Bilateral effusions, mild ascites and developing anasarca 2. Hepatomegaly with diffuse abnormal hepatic texture. 3. 3 cm left adrenal myelolipoma status post cholecystectomy. Rene Armijo MD Chest Ultrasound 09/08/17 0000 Signed Impressions: Service Date/Time: Friday, September 08, 2017 19:44 - CONCLUSION: Small left pleural effusion confirmed sonographically. Valeriano Stone MD Objective Remarks GENERAL: This is a well-nourished, well-developed patient, in no apparent distress. SKIN: Warm and dry HEENT: Normocephalic. Pupils equal round and reactive. Nose without bleeding. Airway patent. NECK: Trachea midline. No JVD. Supple. CARDIOVASCULAR: Regular rate and rhythm without murmurs, gallops, or rubs. RESPIRATORY: Diminished bases. No wheezes, rales, or rhonchi. GASTROINTESTINAL: Abdomen soft, non-tender. Bowel Sounds active. Protuberant abdomen MUSCULOSKELETAL: Extremities without clubbing, cyanosis. Bilateral lower extremity +2 edema. NEUROLOGICAL: Awake and alert. Oriented to time, place, person. No focal neuro deficit. Moves all extremities. Normal speech. A/P Problem List: (1) Congestive heart failure ICD Code: I50.9 - Heart failure, unspecified Status: Acute (2) Ascites ICD Code: R18.8 - Other ascites Assessment and Plan 62-year-old male with a history of diabetes type 2, hypertension, hyperlipidemia presented to the ED for evaluation of 3 weeks history of abdominal bloating, shortness of breath and constipation. New onset congestive heart failure of unknown type - Chest x-ray noted and review by me with moderated cardiomegaly - Rule out ACS per protocol with serial cardiac enzyme and EKGs - Check 2-D echo, pending results - Lasix IV, strict I's and O's Constipation, abdominal bloating - Bowel regimen continue. Bilateral pleural effusions - CT abdomen noted and review by me with finding of bilateral pleural effusion - Will check chest ultrasound to determine if patient needs thoracentesis - Treatment with Lasix as in above Diabetes type 2 - Held Home medication metformin 1000 mg twice a day, and glimepiride - Insulin sliding scale, - Hemoglobin A1c 6.9 - Start Levemir 5units daily at bedtime Hypertension - Resume nifedipine New onset Ascites - CT abdomen/pelvis with finding of mild ascites - Unclear etiology. Patient denies alcohol use. States he drinks beer here and there but does not really engage himself in alcohol use. - Recommend Abdominal paracentesis with appropriate ascitic fluid analysis to diagnose the etiology. Ultrasound of the abdomen showed minimal ascites not enough to safely perform paracentesis. - Hepatitis profile pending. Liver enzymes within normal. - IV Lasix , Aldactone - US liver showed 1. Enlarged echogenic liver likely hepatic's stay a ptosis /hepatocellular dysfunction. 2. Non-visualization of pancreas. 3. Status post cholecystectomy - Consult with low-fat, diabetic diet DVT prophylaxis: SCDs Discharge Planning Pending ECHO Problem Qualifiers (1) Congestive heart failure: Qualified Codes: I50.9 - Heart failure, unspecified Consuelo Vilchis Sep 10, 2017 09:24
--- NOTE | 2017-09-10 10:20 | RADRPT ---
EXAM DATE/TIME: 09/10/2017 09:53 [facility] COMPARISON: No previous studies available for comparison. INDICATIONS : Enlarged liver. MEDICAL HISTORY : Hypertension. Diabetes. Ascites. SURGICAL HISTORY : Paracentesis. ENCOUNTER: Initial ACUITY: 4-6 days PAIN SCORE: 3/10 LOCATION: Bilateral upper quadrant MEASUREMENTS: LIVER: 20.8 cm length COMMON DUCT: 8 mm RIGHT KIDNEY: 10.2 x 3.8 x 4.8 cm SPLEEN: 10.0 cm length FINDINGS: Very limited secondary to patient's body habitus and overlying bowel gas. LIVER: Enlarged and echogenic without focal lesion or ductal dilatation. Hepatopedal flow. COMMON DUCT: No intraluminal mass or stone visualized. GALLBLADDER: Surgically absent. PANCREAS: Not visualized. RIGHT KIDNEY: No hydronephrosis, stone or mass. SPLEEN: No focal lesion. CONCLUSION: 1. Enlarged echogenic liver likely hepatic steatosis/hepatocellular dysfunction. 2. Nonvisualization of pancreas. 3. Status post cholecystectomy. Luis Enriquez MD on September 10, 2017 at 10:14 Board Certified Radiologist. This report was verified electronically.
[2017-09-10] MEDS: SPIRONOLACTONE 25 MG TAB PO SCH (10:52)
[2017-09-10] MEDS: DOCUSATE SODIUM 50 MG/SENNA 8.6 MG TAB PO SCH ×2 (10:53→20:23)
[2017-09-10] MEDS: NIFEdipine 30 MG SUSTAINED RELEASE TAB PO SCH (10:53)
[2017-09-10] MEDS: SODIUM CHLORIDE 0.9% FLUSH 10 ML FLUSH IV FLUSH SCH ×2 (10:53→20:23)
[2017-09-10] MEDS: FUROSEMIDE 40 MG/4 ML VIAL IV PUSH SCH ×2 (10:54→17:20)
[2017-09-10 11:05] VITALS: BP 121/97; PULSE 124; RESP 20; TEMP 97.6; O2SAT 97
[2017-09-10] MEDS ORDERED: DEFIB EXTERNAL (14:39)
[2017-09-10 14:55] LABS: AUTOMATED NEUTROPHIL # 8.1 TH/MM3 (1.8-7.7); BASOPHIL # 0.5 TH/MM3 (0-0.2); BASOPHIL % 4.5 % (0.0-2.0); EOSINOPHIL # 0.1 TH/MM3 (0-0.4); EOSINOPHIL % 0.8 % (0.0-4.0); HEMATOCRIT 43.2 % (39.0-51.0); HEMOGLOBIN 14.8 GM/DL (13.0-17.0); LYMPH % 10.1 % (9.0-44.0); MEAN CORPUSCULAR HEMOGLOBIN 31.6 PG (27.0-34.0); MEAN CORPUSCULAR HGB CONC 34.3 % (32.0-36.0); MEAN PLATELET VOLUME 9.9 FL (7.0-11.0); MONO % 5.4 % (0.0-8.0); MONOCYTE # 0.5 TH/MM3 (0-0.9); NEUT % 79.2 % (16.0-70.0); PLATELET COUNT 253 TH/MM3 (150-450); RED CELL DISTRIBUTION WIDTH 15.2 % (11.6-17.2); WHITE BLOOD COUNT 10.2 TH/MM3 (4.0-11.0)
--- NOTE | 2017-09-10 15:00 | HHI.PR ---
Addendum to Inpatient Note Addendum Reason: Additional Documentation Additional Information Reported to nurse that ECHO 10-15% EF. Patient with increase SOB and c/o abdominal distention. Shown hepatomegaly. Spoke with ultrasound staff and was made aware that the ascites today and yesterday has been inadequate amount for paracentesis. Cardiology consulted. Patient will be transferred to inpatient with telemetry. O2 when necessary. Discuss with patient admission to inpatient and that the sumo wrestler will see him to discuss the results of his echocardiogram and further plan. Patient may benefit with LifeVest. Consuelo Vilchis Sep 10, 2017 15:00
--- NOTE | 2017-09-10 15:02 | ECHRPT ---
Indication: CONCLUSIONS Severely dilated left ventricle. Wall thickness is measured at the upper limits of normal. The left ventricular systolic function is severely reduced with an estimated ejection fraction less than 20%. There is diffuse global hypokinesis with distinct regional wall motion abnormalities. The left atrial size is mildly dilated. Trivial pulmonary valve regurgitation. There is a small pericardial effusion present. No hemodynamically significant echocardiographic features were observed (no pre-tamponade physiology). BP: / HR: Rhythm: MEASUREMENTS (Male / Female) Normal Values Technical Quality: 2D ECHO LV Diastolic Diameter PLAX 6.1 cm 4.2 - 5.9 / 3.9 - 5.3 cm LV Systolic Diameter PLAX 5.8 cm IVS Diastolic Thickness 1.2 cm 0.6 - 1.0 / 0.6 - 0.9 cm LVPW Diastolic Thickness 0.8 cm 0.6 - 1.0 / 0.6 - 0.9 cm LV Relative Wall Thickness 0.3 LA Systolic Diameter LX 4.9 cm 3.0 - 4.0 / 2.7 - 3.8 cm M-MODE Aortic Root Diameter MM 4.2 cm AV Cusp Separation MM 2.4 cm DOPPLER MR Peak Velocity 362.0 cm/s MR Peak Gradient 52.4 mmHg Mitral E Point Velocity 73.1 cm/s Mitral A Point Velocity 40.5 cm/s Mitral E to A Ratio 1.8 TR Peak Velocity 208.0 cm/s TR Peak Gradient 17.3 mmHg FINDINGS LEFT VENTRICLE Severely dilated left ventricle. Wall thickness is measured at the upper limits of normal. The left ventricular systolic function is severely reduced with an estimated ejection fraction less than 20%. There is diffuse global hypokinesis with distinct regional wall motion abnormalities. RIGHT VENTRICLE Normal right ventricular size and systolic function. LEFT ATRIUM The left atrial size is mildly dilated. RIGHT ATRIUM The right atrial size is normal. ATRIAL SEPTUM Normal atrial septal thickness without atrial level shunting by limited color doppler interrogation. AORTA The aortic root and proximal ascending aorta are normal in size on limited imaging. MITRAL VALVE Structurally normal mitral valve. No mitral valve stenosis or regurgitation. AORTIC VALVE Trileaflet aortic valve. No aortic valve stenosis or regurgitation. TRICUSPID VALVE Structurally normal tricuspid valve. No tricuspid valve stenosis or regurgitation. PULMONARY VALVE Trivial pulmonary valve regurgitation. VESSELS The inferior vena cava is normal in size. PERICARDIUM There is a small pericardial effusion present. No hemodynamically significant echocardiographic features were observed (no pre-tamponade physiology). Marino A. Horenstein MD (Electronically Signed) Final Date:10 September 2017 15:00
--- NOTE | 2017-09-10 15:05 | MB ---
cc: MARY MALIK MD DATE OF CONSULTATION: 09/10/2017. REASON FOR CONSULTATION: New onset CHF / cardiomyopathy. 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 The patient had been in his usual state of health until about a month ago when he began having a lot of difficulty with GI issues, namely constipation with some nausea and vomiting as well. Over the last month he also became more and more dyspneic and he just had been attributing this to the lack of being able to have a bowel movement and his abdominal distention. He also began having lower extremity edema. He finally presented to the hospital where he was found to be in clinical congestive heart failure. An echocardiogram has been done which shows an ejection fraction of about 10% to 15%. The patient has diuresed some and now has a Chi catheter and has had a bowel movement and he says he is feeling much better with no residual shortness of breath. He denies any current or past chest pain, lightheadedness, dizziness or syncope. PAST MEDICAL HISTORY: 1. Diabetes. 2. Obesity. 3. Hypertension. 4. Hyperlipidemia. CURRENT MEDICATIONS: 1. Aldactone 25 milligrams daily. 2. Lasix 40 milligrams IV twice a day. 3. Procardia 30 milligrams daily. ALLERGIES: Azithromycin. PHYSICAL EXAMINATION: VITAL SIGNS: Afebrile, pulse 110, respiratory rate 20, blood pressure 129/97, satting 97% on room air. GENERAL: A pleasant obese gentleman in no distress. NECK: No jugular venous distention. LUNGS: Clear to auscultation bilaterally. CARDIOVASCULAR: Slightly tachycardic. No significant murmurs appreciated. ABDOMEN: Benign. EXTREMITIES: 1 to 2+ edema bilaterally. LABORATORY DATA: Laboratory data from yesterday: Sodium 138, potassium 4.1, chloride 104, bicarbonate 25.4, BUN 24, creatinine 1.26, glucose 211. BNP was 663. Troponin was negative x3. INR is 1.3. White count 9.0, hematocrit 40.9, platelet count 226,000. EKGS: EKG shows sinus tachycardia with nonspecific S-T changes but no acute S-T or T wave changes. Echocardiogram preliminarily shows an ejection fraction of 10% to 15% with global hypokinesis (full echo report will follow). IMPRESSION: 1. New-onset cardiomyopathy with acute systolic congestive heart failure: The patient with this new diagnosis is doing better and probably nearly compensated on his current diuretic regimen. I will continue this overnight and perhaps change him to oral diuretics tomorrow or the next day. I have adjusted his antihypertensive regimen to include Entresto and Carvedilol discontinuing his calcium channel boom and for the moment Aldactone until his potassium is better established. I will have him undergo a nuclear stress test to get a sense of whether this is an ischemic or a nonischemic cardiomyopathy, though by history it seems more likely a nonischemic cardiomyopathy. Lastly, I have ordered a LifeVest, which he can wear upon discharge in the intervening months while we attempt to get his ejection fraction above 35% with medications. Further recommendations will be based on all of the above. Thank you again for the opportunity to participate in this patient's care. MD BENITO Phillips/KELBY /2:41 PM /2:52 PM
[2017-09-10 15:14] LABS: ALBUMIN 3.9 GM/DL (3.4-5.0); AST (GOT) 47 U/L (15-37); BICARBONATE 27.2 MEQ/L (21.0-32.0); BLOOD UREA NITROGEN 28 MG/DL (7-18); CALCIUM 8.7 MG/DL (8.5-10.1); CHLORIDE 98 MEQ/L (98-107); CREATININE 1.26 MG/DL (0.60-1.30); GLOMERULAR FILTRATION RATE 58 ML/MIN (>89); GLUCOSE,RANDOM 280 MG/DL (74-106); SODIUM (NA) 135 MEQ/L (136-145)
[2017-09-10 15:18] LABS: ALKALINE PHOSPHATASE 83 U/L (45-117); ALT (GPT) 84 U/L (12-78); TOTAL BILIRUBIN ADULT 1.1 MG/DL (0.2-1.0); TOTAL PROTEIN 7.8 GM/DL (6.4-8.2)
[2017-09-10 16:01] VITALS: BP 109/79; PULSE 120; RESP 21; TEMP 97.5; O2SAT 97
[2017-09-10 16:14] LABS: BANDS 3 % (0-6); BASOPHILS 2 % (0-2); LYMPHOCYTES 17 % (9-44); MONOCYTES 7 % (0-8); NEUTROPHIL # MANUAL DIFF 7.4 TH/MM3 (1.8-7.7); POLYS (SEG NEUTROPHILS) 70 % (16-70)
[2017-09-10 20:00] VITALS: BP 122/75; PULSE 115; PULSE 141; RESP 20; TEMP 98.9; O2SAT 96
[2017-09-10] MEDS: ATORVASTATIN 10 MG TAB PO SCH (20:22)
[2017-09-10] MEDS: CARVEDILOL 3.125 MG TAB PO SCH (20:22)
[2017-09-10] MEDS: SACUBITRIL/VALSARTAN 24 MG-26 MG TAB PO SCH (20:23)
[2017-09-10] MEDS: INSULIN DETEMIR 100 UNITS/ML VIAL SQ SCH (20:23)
[2017-09-10] MEDS ORDERED: CARVEDILOL 3.125 MG TAB PO SCH (21:00)
[2017-09-11] VITALS (8 sets, daily range): BP systolic 97–129; BP diastolic 68–73; PULSE 96–114; RESP 18–22; TEMP 97.3–98.6; O2SAT 93–97
[2017-09-11] MEDS: INSULIN ASPART SUPPLEMENTAL SCALE SQ SCH ×4 (08:00→21:00)
[2017-09-11] MEDS: RESP: ALBUTEROL 2.5 MG/IPRATROPIUM 0.5 MG NEB (SCH) NEB ×3 (08:01→20:08)
[2017-09-11] MEDS: DOCUSATE SODIUM 50 MG/SENNA 8.6 MG TAB PO SCH ×2 (08:56→21:18)
[2017-09-11] MEDS: SODIUM CHLORIDE 0.9% FLUSH 10 ML FLUSH IV FLUSH SCH ×2 (08:56→21:00)
[2017-09-11] MEDS: FUROSEMIDE 40 MG/4 ML VIAL IV PUSH SCH ×2 (08:56→18:12)
[2017-09-11] MEDS: SACUBITRIL/VALSARTAN 24 MG-26 MG TAB PO SCH ×2 (08:56→21:19)
[2017-09-11] MEDS: CARVEDILOL 3.125 MG TAB PO SCH ×2 (08:56→21:19)
[2017-09-11 09:09] LABS: BICARBONATE 26.1 MEQ/L (21.0-32.0); CALCIUM 8.6 MG/DL (8.5-10.1); CREATININE 0.96 MG/DL (0.60-1.30); MAGNESIUM 1.8 MG/DL (1.5-2.5)
[2017-09-11] MEDS ORDERED: REGADENOSON INJ 0.4 MG/5 ML SYR ONE (10:06)
--- NOTE | 2017-09-11 11:52 | HHI.PR ---
Subjective Remarks The patient was slightly aggravated that he was still unable to eat anything following the stress test. Otherwise in no acute complaints. He believes his legs are slightly less swollen. He was talking with a [employer] sales representative. Discussed with nursing. Objective Vitals Vital Signs Date Time Temp Pulse Resp B/P (MAP) Pulse Ox O2 Delivery O2 Flow Rate FiO2 09/11/17 08:00 98.0 96 18 104/72 (83) 97 09/11/17 04:00 97.3 102 22 112/68 (83) 95 09/11/17 04:00 98 09/11/17 00:00 106 09/11/17 00:00 98.1 114 22 129/73 (91) 95 09/10/17 20:00 98.9 115 20 122/75 (91) 96 09/10/17 20:00 141 09/10/17 16:01 97.5 120 21 109/79 (89) 97 I/O 09/10/17 09/10/17 09/10/17 09/11/17 09/11/17 09/11/17 07:00 15:00 23:00 07:00 15:00 23:00 Intake Total 0 ml Output Total 200 ml 950 ml Balance -200 ml -950 ml Intake Oral 0 ml Output Urine Total 200 ml 950 ml # Bowel Movements 0 Result Diagram: 09/10/17 1443 09/11/17 0810 Imaging Last Impressions Liver Ultrasound 09/10/17 0000 Signed Impressions: Service Date/Time: Sunday, September 10, 2017 09:53 - CONCLUSION: 1. Enlarged echogenic liver likely hepatic steatosis/hepatocellular dysfunction. 2. Nonvisualization of pancreas. 3. Status post cholecystectomy. Luis Enriquez MD Abdomen Ultrasound 09/09/17 0000 Signed Impressions: Service Date/Time: Saturday, September 09, 2017 07:58 - CONCLUSION: Minimal ascites but not enough to safely perform paracentesis. Luis Enriquez MD Chest X-Ray 09/08/17 1236 Signed Impressions: Service Date/Time: Friday, September 08, 2017 13:10 - CONCLUSION: 1. Moderate cardiomegaly 2. Mild basilar air space disease 3. No evidence of free air. Rene Armijo MD Abdomen/Pelvis CT 09/08/17 1236 Signed Impressions: Service Date/Time: Friday, September 08, 2017 14:02 - CONCLUSION: 1. Bilateral effusions, mild ascites and developing anasarca 2. Hepatomegaly with diffuse abnormal hepatic texture. 3. 3 cm left adrenal myelolipoma status post cholecystectomy. Rene Armijo MD Chest Ultrasound 09/08/17 0000 Signed Impressions: Service Date/Time: Friday, September 08, 2017 19:44 - CONCLUSION: Small left pleural effusion confirmed sonographically. Valeriano Stone MD Objective Remarks GENERAL: This is a well-nourished, well-developed patient, in no apparent distress. SKIN: Warm and dry HEENT: Normocephalic. Pupils equal round and reactive. Nose without bleeding. Airway patent. NECK: Trachea midline. No JVD. Supple. CARDIOVASCULAR: Regular rate and rhythm without murmurs, gallops, or rubs. RESPIRATORY: No wheezes, rales, or rhonchi. GASTROINTESTINAL: Abdomen soft, non-tender. Bowel Sounds active. Protuberant abdomen MUSCULOSKELETAL: Extremities without clubbing, cyanosis. Bilateral lower extremities with 2-3+ edema. NEUROLOGICAL: Awake and alert. Oriented to time, place, person. No focal neuro deficit. Moves all extremities. Normal speech. Medications and IVs Current Medications Medications (Trade) Dose Ordered Sig/Marcella Route Start Time Stop Time Status Last Admin (NS Flush) 2 ml UNSCH PRN IV FLUSH 09/08/17 18:30 (NS Flush) 2 ml BID IV FLUSH 09/08/17 21:00 09/11/17 08:56 (Tylenol) 650 mg Q6H PRN PO 09/08/17 18:30 (Easley 5-325 Mg) 1 tab Q4H PRN PO 09/08/17 18:30 (Narcan Inj) 0.4 mg UNSCH PRN IV PUSH 09/08/17 18:30 (Milk Of Magnesia Liq) 30 ml Q12H PRN PO 09/08/17 18:30 09/09/17 00:29 (D50w (Vial) Inj) 50 ml UNSCH PRN IV PUSH 09/08/17 18:30 (Glucagon Inj) 1 mg UNSCH PRN OTHER 09/08/17 18:30 (NovoLOG SUPPLEMENTAL SCALE) 1 ACHS SLIDING SCALE SQ 09/08/17 21:00 09/10/17 20:24 (Duoneb Neb) 1 ampule Q6HR WHILE AWAKE NEB NEB 09/08/17 20:00 09/11/17 08:01 (Duoneb Neb) 1 ampule Q2HR NEB PRN NEB 09/08/17 18:30 (Lasix Inj) 40 mg BID@ IV PUSH 09/09/17 09:00 09/11/17 08:56 (Lipitor) 10 mg HS PO 09/08/17 21:00 09/10/17 20:22 (Zofran Inj) 4 mg Q6HR PRN IV PUSH 09/09/17 04:00 09/09/17 04:25 (Lucila-Colace) 2 tab BID PO 09/09/17 12:00 09/11/17 08:56 (Robitussin Ac 200-20 Mg/10 ml Liq) 10 ml Q6H PRN PO 09/09/17 17:45 09/09/17 21:19 (Levemir Inj) 5 units HS SQ 09/10/17 21:00 09/10/17 20:23 (Entresto 24-26 Mg) 1 tab BID PO 09/10/17 21:00 09/11/17 08:56 (Coreg) 3.125 mg Q12HR PO 09/10/17 21:00 09/11/17 08:56 A/P Problem List: (1) Congestive heart failure ICD Code: I50.9 - Heart failure, unspecified Status: Acute (2) Ascites ICD Code: R18.8 - Other ascites Assessment and Plan 62-year-old male with a history of diabetes type 2, hypertension, hyperlipidemia presented to the ED for evaluation of 3 weeks history of abdominal bloating, shortness of breath and constipation. New onset acute systolic congestive heart failure of unknown type Chest x-ray with moderated cardiomegaly. Bilateral pleural effusions noted on US. 2-D echo with EF < 20%, global hypokinesis. Cardiology consult appreciated. - Lasix IV, strict I's and O's. - stress test pending. - continue cardiac regimen. - [employer] upon discharge. - telemetry. Constipation, abdominal bloating Resolved. - Bowel regimen. Diabetes type 2 Hemoglobin A1c 6.9%. - Held Home medication metformin 1000 mg twice a day, and glimepiride - Insulin sliding scale. - Start Levemir 5units daily at bedtime. New onset Ascites CT abdomen/pelvis with finding of mild ascites. Ultrasound of the abdomen showed minimal ascites not enough to safely perform paracentesis. US with hepatic steatosis/ hepatocellular dysfunction. - Hepatitis profile pending. - IV Lasix , Aldactone. - Trend LFTs. DVT prophylaxis: SCDs Discharge Planning Awaiting stress test results and further diuresis Problem Qualifiers (1) Congestive heart failure: Qualified Codes: I50.9 - Heart failure, unspecified Manoj Cabrera DO Sep 11, 2017 11:52
[2017-09-11 15:54] LABS: HEPATITIS A AB IGM NEGATIVE (NEGATIVE); HEPATITIS B CORE AB IGM NEGATIVE (NEGATIVE); HEPATITIS B SURFACE ANTIGEN NEGATIVE (NEGATIVE); HEPATITIS C AB IgG NEGATIVE (NEGATIVE)
[2017-09-11] MEDS: INSULIN DETEMIR 100 UNITS/ML VIAL SQ SCH (21:00)
[2017-09-11] MEDS: ATORVASTATIN 10 MG TAB PO SCH (21:19)
--- NOTE | 2017-09-11 22:08 | EKG ---
Date Performed: 09/10/2017 Time Performed: 21:41:38 PTAGE: 62 years EKG: Sinus tachycardia with PVC(s) Left axis deviation Inferior infarct - age undetermined Gener alized low QRS voltages Abnormal ECG PREVIOUS TRACING : 09/09/2017 02.07 DOCTOR: Carlos Gamboa Interpretating Date/Time 09/11/2017 22:01:51
[2017-09-11] MEDS: guaiFENesin/CODEINE SYRUP 200 MG/20 MG/10 ML CUP PO PRN (22:34)
[2017-09-12] VITALS (9 sets, daily range): BP systolic 94–110; BP diastolic 61–78; PULSE 91–104; RESP 18–20; TEMP 97.1–98.3; O2SAT 93–97
[2017-09-12] MEDS: RESP: ALBUTEROL 2.5 MG/IPRATROPIUM 0.5 MG NEB (SCH) NEB ×2 (07:38→19:31)
[2017-09-12] MEDS: INSULIN ASPART SUPPLEMENTAL SCALE SQ SCH ×4 (08:00→20:42)
--- NOTE | 2017-09-12 10:43 | RADRPT ---
EXAM DATE/TIME: 09/11/2017 10:43 [facility] COMPARISON: No previous studies available for comparison. INDICATIONS : Cardiomyopathy. Congestive heart failure. DOSE: 30 mCi Tc99m Myoview at stress. 30 mCi Tc99m Myoview at rest. 0.4 mg Lexiscan STRESS SYMPTOMS: Headache. EJECTION FRACTION: 17% MEDICAL HISTORY : Diabetes mellitus type 2. Hypertension. SURGICAL HISTORY : Cholecystectomy. ENCOUNTER: Initial ACUITY: 1 day PAIN SCALE: 0/10 LOCATION: chest TECHNIQUE: The patient underwent pharmacologic stress with infusion of prescribed dose. Continuous ECG tracing was monitored during stress. Gated SPECT imaging was performed after stress and conventional SPECT i maging was performed at rest. The examination was performed on a SPECT/CT scanner, both attenuation and non-corrected datasets were reviewed. FINDINGS: DISTRIBUTION: The maximum perfused segment at stress is in the lateral wall. PERFUSION STUDY: Patchy areas of mildly to moderately diminished relative perfusion are present involving multiple vas cular territories, however no definite redistribution is identified. GATED STUDY: Prominent left ventricular chamber enlargement with diffuse severe hypokinesis CONCLUSION: Dilated cardiomyopathy. No definite ischemia RISK CATEGORY: High (>3% Annual Mortality Rate) Toribio Eller MD on September 12, 2017 at 10:35 Board Certified Radiologist. This report was verified electronically.
[2017-09-12] MEDS: SACUBITRIL/VALSARTAN 24 MG-26 MG TAB PO SCH ×2 (11:03→20:41)
[2017-09-12] MEDS: DOCUSATE SODIUM 50 MG/SENNA 8.6 MG TAB PO SCH ×2 (11:03→20:41)
[2017-09-12] MEDS: CARVEDILOL 3.125 MG TAB PO SCH ×2 (11:03→20:41)
[2017-09-12] MEDS: SODIUM CHLORIDE 0.9% FLUSH 10 ML FLUSH IV FLUSH SCH ×2 (11:04→20:42)
[2017-09-12] MEDS: FUROSEMIDE 40 MG/4 ML VIAL IV PUSH SCH (11:04)
--- NOTE | 2017-09-12 11:04 | HHI.PR ---
Subjective Remarks Follow-up cardiomyopathy. Denies shortness of breath and chest pain. He has been ambulating. Discussed with RN Objective Vitals Vital Signs Date Time Temp Pulse Resp B/P (MAP) Pulse Ox O2 Delivery O2 Flow Rate FiO2 09/12/17 08:00 98.2 98 20 104/75 (85) 95 09/12/17 05:28 98.1 91 18 94/63 (73) 97 09/12/17 04:32 Room Air 09/12/17 04:32 98 09/12/17 00:36 Room Air 09/12/17 00:10 98.3 104 20 103/63 (76) 96 09/12/17 00:05 104 09/11/17 21:35 98.0 110 18 97/69 (78) 95 09/11/17 20:07 111 09/11/17 20:00 Room Air 09/11/17 16:04 102 09/11/17 16:00 97.8 102 18 101/72 (82) 93 09/11/17 12:00 98.6 104 18 109/69 (82) 95 I/O 09/11/17 09/11/17 09/11/17 09/12/17 09/12/17 09/12/17 07:00 15:00 23:00 07:00 15:00 23:00 Intake Total 0 ml 240 ml 480 ml Output Total 950 ml 800 ml 550 ml Balance -950 ml -560 ml -70 ml Intake Oral 0 ml 240 ml 480 ml Output Urine Total 950 ml 800 ml 550 ml # Bowel Movements 0 1 0 Result Diagram: 09/10/17 1443 09/11/17 0810 Imaging Last Impressions Myocardial Perfusion Scan Nuc Med 09/11/17 0600 Signed Impressions: Service Date/Time: Monday, September 11, 2017 10:43 - CONCLUSION: Dilated cardiomyopathy. No definite ischemia RISK CATEGORY: High (>3%% Annual Mortality Rate) Toribio Eller MD Liver Ultrasound 09/10/17 0000 Signed Impressions: Service Date/Time: Sunday, September 10, 2017 09:53 - CONCLUSION: 1. Enlarged echogenic liver likely hepatic steatosis/hepatocellular dysfunction. 2. Nonvisualization of pancreas. 3. Status post cholecystectomy. Luis Enriquez MD Abdomen Ultrasound 09/09/17 0000 Signed Impressions: Service Date/Time: Saturday, September 09, 2017 07:58 - CONCLUSION: Minimal ascites but not enough to safely perform paracentesis. Luis Enriquez MD Chest X-Ray 09/08/17 1236 Signed Impressions: Service Date/Time: Friday, September 08, 2017 13:10 - CONCLUSION: 1. Moderate cardiomegaly 2. Mild basilar air space disease 3. No evidence of free air. Rene Armijo MD Abdomen/Pelvis CT 09/08/17 1236 Signed Impressions: Service Date/Time: Friday, September 08, 2017 14:02 - CONCLUSION: 1. Bilateral effusions, mild ascites and developing anasarca 2. Hepatomegaly with diffuse abnormal hepatic texture. 3. 3 cm left adrenal myelolipoma status post cholecystectomy. Rene Armijo MD Chest Ultrasound 09/08/17 0000 Signed Impressions: Service Date/Time: Friday, September 08, 2017 19:44 - CONCLUSION: Small left pleural effusion confirmed sonographically. Valeriano Stone MD Objective Remarks GENERAL: This is a well-nourished, well-developed patient, in no apparent distress. SKIN: Warm and dry CARDIOVASCULAR: Regular rate and rhythm without murmurs, gallops, or rubs. RESPIRATORY: No wheezes, rales, or rhonchi. GASTROINTESTINAL: Abdomen soft, non-tender. Bowel Sounds active. Protuberant abdomen MUSCULOSKELETAL: Extremities without clubbing, cyanosis. Bilateral lower extremities with 2-3+ edema. NEUROLOGICAL: Awake and alert. Oriented to time, place, person. No focal neuro deficit. Moves all extremities. Normal speech. Procedures None A/P Problem List: (1) Congestive heart failure ICD Code: I50.9 - Heart failure, unspecified Status: Acute (2) Ascites ICD Code: R18.8 - Other ascites Assessment and Plan 62-year-old male with a history of diabetes type 2, hypertension, hyperlipidemia presented to the ED for evaluation of 3 weeks history of abdominal bloating, shortness of breath and constipation. New onset acute systolic congestive heart failure. Clinically stabl3 Chest x-ray with moderated cardiomegaly. Bilateral pleural effusions noted on US. 2-D echo with EF < 20%, global hypokinesis. Cardiology consult appreciated. - Lasix IV, strict I's and O's. - stress test pending. - continue cardiac regimen with lasix, coreg and entresto. - [employer] upon discharge. - telemetry. Constipation, abdominal bloating Resolved. - Bowel regimen. Diabetes type 2 Hemoglobin A1c 6.9%. - Dc metformin 1000 mg twice a day, and restart glimepiride RN to verify dose - Insulin sliding scale. - Increase Levemir to 20 units daily at bedtime for better control. New onset Ascites CT abdomen/pelvis with finding of mild ascites. Ultrasound of the abdomen showed minimal ascites not enough to safely perform paracentesis. US with hepatic steatosis/ hepatocellular dysfunction. - Hepatitis profile negative - IV Lasix - Trend LFTs(transaminitis could also be from congestion). Urinary retention. Discontinue Chi catheter. Increase activity. Consider Flomax DVT prophylaxis: SCDs Discharge Planning Possible discharge today if stress test negative in light best arranged. May need home care visiting nurse for Chi catheter care if unable to void Problem Qualifiers (1) Congestive heart failure: Qualified Codes: I50.9 - Heart failure, unspecified Aki Cunningham MD Sep 12, 2017 11:04
[2017-09-12] MEDS ORDERED: FURO40TA PO (11:36)
[2017-09-12] MEDS ORDERED: SACU1TAB PO (11:36)
[2017-09-12] MEDS ORDERED: LEVEMIR SQ (11:36)
[2017-09-12] MEDS ORDERED: CARV3.125 PO (11:36)
--- NOTE | 2017-09-12 11:36 | HHI.DCPOC ---
Discharge Care Plan Diagnosis: (1) Dilated cardiomyopathy Your Health Problems Are: Difficulty with ADL Exercise Tolerance Goals to Promote Your Health * To prevent worsening of your condition and complications * To maintain your health at the optimal level Directions to Meet Your Goals Take your medications as prescribed Follow your dietary instruction Follow activity as directed Keep your appointments as scheduled Take your immunizations and boosters as scheduled If your symptoms worsen call your PCP, if no PCP go to Urgent Care Center or Emergency Room Smoking is Dangerous to Your Health. Avoid second hand smoke Call the 24-hour hour crisis hotline for domestic abuse at Aki Cunningham MD Sep 12, 2017 11:36
--- NOTE | 2017-09-12 11:38 | HHI.FF ---
Face to Face Verification Diagnosis: (1) Dilated cardiomyopathy (2) Urinary retention (3) Diabetes Home Health Nursing Order: Medical education Signs/symptoms of disease process Diabetic education CHF education Medication education-adverse effect Nursing assessment with vital signs Chi catheter maintenance I have seen patient Munir Suarez on 09/12/17. My clinical findings support the need for the requested home health care services because: Patient has SOB I certify that my clinical findings support that this patient is homebound because: Unsafe to leave home unassisted Aki Cunningham MD Sep 12, 2017 11:38
[2017-09-12] MEDS ORDERED: LANCETS1 MI1 (11:39)
[2017-09-12] MEDS ORDERED: GLUCTES12 (11:39)
[2017-09-12] MEDS ORDERED: GLUCKIT15 (11:39)
[2017-09-12] MEDS ORDERED: BIOM30MI (11:39)
[2017-09-12] MEDS ORDERED: INSU1MIS15 (11:39)
--- NOTE | 2017-09-12 11:41 | HHI.DS ---
Discharge Summary Admission Date Sep 10, 2017 at 13:06 Discharge Date: Sep 13, 2017 Admitting Diagnosis Acute CHF (1) Congestive heart failure ICD Code: I50.9 - Heart failure, unspecified Diagnosis: Principal Status: Acute (2) Ascites ICD Code: R18.8 - Other ascites Diagnosis: Principal Procedures None Brief History - From Admission 62-year-old male with a history of diabetes type 2, hypertension, hyperlipidemia presented to the ED for evaluation of 3 weeks history of abdominal bloating, shortness of breath and constipation. She states, is been having intermittent diarrhea and constipation over the past 3 weeks and was seen by his PCP however was treated with [id number] medications. He reports severe dyspnea at rest as well as on exertion along with associates lower extremity edema. Patient's went to a local urgent care a few days ago was advised to come to the ED for further evaluation secondary to possible ascites. In the ED, patient was found to have a BNP of over 600+ and CT abdomen with evidence of hepatomegaly and ascites. 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 He reported that his last colonoscopy was in 2006. He denies any GI bleed. He denies any history of alcohol abuse. CBC/BMP: 09/10/17 1443 09/11/17 0810 Significant Findings Laboratory Tests Test 09/10/17 14:43 09/11/17 08:10 Neutrophils (%) (Auto) 79.2 % (16.0-70.0) Basophils (%) (Auto) 4.5 % (0.0-2.0) Neutrophils # (Auto) 8.1 TH/MM3 (1.8-7.7) Basophils # (Auto) 0.5 TH/MM3 (0-0.2) Blood Urea Nitrogen 28 MG/DL (7-18) 29 MG/DL (7-18) Random Glucose 280 MG/DL (74-106) 157 MG/DL (74-106) Aspartate Amino Transf (AST/SGOT) 47 U/L (15-37) Alanine Aminotransferase (ALT/SGPT) 84 U/L (12-78) Total Bilirubin 1.1 MG/DL (0.2-1.0) Sodium Level 135 MEQ/L (136-145) Estimat Glomerular Filtration Rate 58 ML/MIN (>89) 80 ML/MIN (>89) Imaging Last Impressions Myocardial Perfusion Scan Nuc Med 09/11/17 0600 Signed Impressions: Service Date/Time: Monday, September 11, 2017 10:43 - CONCLUSION: Dilated cardiomyopathy. No definite ischemia RISK CATEGORY: High (>3%% Annual Mortality Rate) Toribio Eller MD Liver Ultrasound 09/10/17 0000 Signed Impressions: Service Date/Time: Sunday, September 10, 2017 09:53 - CONCLUSION: 1. Enlarged echogenic liver likely hepatic steatosis/hepatocellular dysfunction. 2. Nonvisualization of pancreas. 3. Status post cholecystectomy. Luis Enriquez MD Abdomen Ultrasound 09/09/17 0000 Signed Impressions: Service Date/Time: Saturday, September 09, 2017 07:58 - CONCLUSION: Minimal ascites but not enough to safely perform paracentesis. Luis Enriquez MD Chest X-Ray 09/08/17 1236 Signed Impressions: Service Date/Time: Friday, September 08, 2017 13:10 - CONCLUSION: 1. Moderate cardiomegaly 2. Mild basilar air space disease 3. No evidence of free air. Rene Armijo MD Abdomen/Pelvis CT 09/08/17 1236 Signed Impressions: Service Date/Time: Friday, September 08, 2017 14:02 - CONCLUSION: 1. Bilateral effusions, mild ascites and developing anasarca 2. Hepatomegaly with diffuse abnormal hepatic texture. 3. 3 cm left adrenal myelolipoma status post cholecystectomy. Rene Armijo MD Chest Ultrasound 09/08/17 0000 Signed Impressions: Service Date/Time: Friday, September 08, 2017 19:44 - CONCLUSION: Small left pleural effusion confirmed sonographically. Valeriano Stone MD PE at Discharge GENERAL: This is a well-nourished, well-developed patient, in no apparent distress. SKIN: Warm and dry CARDIOVASCULAR: Regular rate and rhythm without murmurs, gallops, or rubs. RESPIRATORY: No wheezes, rales, or rhonchi. GASTROINTESTINAL: Abdomen soft, non-tender. Bowel Sounds active. Protuberant abdomen MUSCULOSKELETAL: Extremities without clubbing, cyanosis. Bilateral lower extremities with 2-3+ edema. NEUROLOGICAL: Awake and alert. Oriented to time, place, person. No focal neuro deficit. Moves all extremities. Normal speech. Hospital Course 62-year-old male with a history of diabetes type 2, hypertension, hyperlipidemia presented to the ED for evaluation of 3 weeks history of abdominal bloating, shortness of breath and constipation. New onset acute systolic congestive heart failure. Clinically stable Chest x-ray with moderated cardiomegaly. Bilateral pleural effusions noted on US. 2-D echo with EF < 20%, global hypokinesis. Cardiology consult appreciated. - Lasix IV, strict I's and O's. - stress test negative for ischemia - continue cardiac regimen with lasix, coreg and entresto. - [employer] upon discharge. - telemetry. Constipation, abdominal bloating Resolved. - Bowel regimen. Diabetes type 2 Hemoglobin A1c 6.9%. - Dc metformin 1000 mg twice a day, and restart glimepiride RN to verify dose - Insulin sliding scale. - Hyperglycemic off home meds. I improved fingersticks on Levemir 20 units daily at bedtime New onset Ascites CT abdomen/pelvis with finding of mild ascites. Ultrasound of the abdomen showed minimal ascites not enough to safely perform paracentesis. US with hepatic steatosis/ hepatocellular dysfunction. - Hepatitis profile negative -Continue diuresis - Trend LFTs(transaminitis could also be from congestion). Urinary retention. Improving. Chi catheter has been removed. Continue Flomax. Op f/u DVT prophylaxis: SCDs Pt Condition on Discharge: Stable Discharge Disposition: Disch w/ Home Health Serv Discharge Time: > 30 minutes Discharge Instructions DIET: Follow Instructions for: Heart Healthy Diet, Diabetic Diet Activities you can perform: Regular-No Restrictions Activities to Avoid: Driving Follow up Referrals: Cardiology - 2 Weeks Cardiology - 2 Weeks @ [facility] PCP Follow-up - 1 Week PCP Follow-up - 1 Week @ [facility] - 1 Week New Orders: BASIC METABOLIC PROF - 1 Week New Medications: Blood Glucose Monitoring W/Device (Glucocom Blood Glucose Mo W/Device) 1 Kit Kit KIT .XX DIRECTED for Blood Sugar Management, #1 Defibrillator Jacket (Defibrillator Jacket) 1 Ea Device EA EXTERNAL ONCE, #1 Energy = 150 Joules; VT Threshold = 150 BPM; VF Threshold = 200 BPM Use up to 90 days only Glucocom Test Strips (Glucocom Test Strips) 1 Sharri Sharri EA .XX DIRECTED for Blood Sugar Management, #1 Insulin Syringe/U-100/31G X 5/16" 1 ml (Insulin Syringe/U-100/31G X 5/16" 1 ml) 31 Gauge X 5/16" Mis EA .XX DIRECTED for Blood Sugar Management, #1 0 Refills Lancets (Lancets) 1 Mis Mis EA .XX DIRECTED for Blood Sugar Management, #1 0 Refills Parenteral Therapy Supplies (Sharpsafety Sharps Contai) 1 Mis Mis EA .XX DIRECTED, #1 0 Refills Carvedilol (Coreg) 3.125 Mg Tab 3.125 MG PO Q12HR for Prevent Heart Failure, #60 TAB Furosemide (Furosemide) 40 Mg Tab 40 MG PO DAILY for Prevent Heart Failure, #30 TAB Insulin Detemir Inj (Levemir Inj) 1,000 unit/ 10 ML Vial 20 UNITS SQ HS for Blood Sugar Management, #30 INJECTION Do not mix with any other Insulin. Sacubitril-Valsartan (Entresto) 24-26 Mg Tab 1 TAB PO BID for Prevent Heart Failure, #60 TAB Continued Medications: Aspirin (Aspirin) Unknown Strength Tab 1 TAB PO DAILY, #30 TAB 0 Refills Glimepiride (Glimepiride) Unknown Strength Tab 1 TAB PO DAILY for Blood Sugar Management, #30 TAB 0 Refills Take with breakfast or first main meal Simvastatin (Simvastatin) Unknown Strength Tab 1 TAB PO HS for Cholesterol Management, #30 TAB 0 Refills Discontinued Medications: Hydrochlorothiazide (Hydrochlorothiazide) Unknown Strength Tab 1 TAB PO DAILY, #30 TAB 0 Refills Metformin (Metformin) 1,000 Mg Tab 1000 MG PO BIDPC for Blood Sugar Management, #60 TAB 0 Refills Nifedipine ER 24 HR (Nifedipine ER 24 HR) 30 Mg Tab 30 MG PO DAILY, #30 TAB 0 Refills Aki Cunningham MD Sep 12, 2017 11:41
--- NOTE | 2017-09-12 17:18 | PD.CARD.PN ---
Subjective Subjective Remarks some difficulty voiding but no cardiac complaints. Objective Medications Current Medications Medications (Trade) Dose Ordered Sig/Marcella Route Start Time Stop Time Status Last Admin (NS Flush) 2 ml UNSCH PRN IV FLUSH 09/08/17 18:30 (NS Flush) 2 ml BID IV FLUSH 09/08/17 21:00 09/12/17 11:04 (Tylenol) 650 mg Q6H PRN PO 09/08/17 18:30 ([place] 5-325 Mg) 1 tab Q4H PRN PO 09/08/17 18:30 (Narcan Inj) 0.4 mg UNSCH PRN IV PUSH 09/08/17 18:30 (Milk Of Magnesia Liq) 30 ml Q12H PRN PO 09/08/17 18:30 09/09/17 00:29 (D50w (Vial) Inj) 50 ml UNSCH PRN IV PUSH 09/08/17 18:30 (Glucagon Inj) 1 mg UNSCH PRN OTHER 09/08/17 18:30 (NovoLOG SUPPLEMENTAL SCALE) 1 ACHS SLIDING SCALE SQ 09/08/17 21:00 09/12/17 12:31 (Duoneb Neb) 1 ampule Q2HR NEB PRN NEB 09/08/17 18:30 09/12/17 11:13 (Lipitor) 10 mg HS PO 09/08/17 21:00 09/11/17 21:19 (Zofran Inj) 4 mg Q6HR PRN IV PUSH 09/09/17 04:00 09/09/17 04:25 (Lucila-Colace) 2 tab BID PO 09/09/17 12:00 09/12/17 11:03 (Robitussin Ac 200-20 Mg/10 ml Liq) 10 ml Q6H PRN PO 09/09/17 17:45 09/11/17 22:34 (Entresto 24-26 Mg) 1 tab BID PO 09/10/17 21:00 09/12/17 11:03 (Coreg) 3.125 mg Q12HR PO 09/10/17 21:00 09/12/17 11:03 (Duoneb Neb) 1 ampule Q6HR WHILE AWAKE NEB NEB 09/12/17 14:00 (Levemir Inj) 20 units HS SQ 09/12/17 21:00 (Lasix) 40 mg DAILY PO 09/13/17 09:00 Vital Signs / I&O Vital Signs Date Time Temp Pulse Resp B/P (MAP) Pulse Ox O2 Delivery O2 Flow Rate FiO2 09/12/17 08:00 102 09/12/17 08:00 Room Air 09/12/17 08:00 98.2 98 20 104/75 (85) 95 09/12/17 05:28 98.1 91 18 94/63 (73) 97 09/12/17 04:32 Room Air 09/12/17 04:32 98 09/12/17 00:36 Room Air 09/12/17 00:10 98.3 104 20 103/63 (76) 96 09/12/17 00:05 104 09/11/17 21:35 98.0 110 18 97/69 (78) 95 09/11/17 20:07 111 09/11/17 20:00 Room Air I/O 09/11/17 09/11/17 09/11/17 09/12/17 09/12/17 09/12/17 07:00 15:00 23:00 07:00 15:00 23:00 Intake Total 0 ml 240 ml 480 ml Output Total 950 ml 800 ml 550 ml Balance -950 ml -560 ml -70 ml Intake Oral 0 ml 240 ml 480 ml Output Urine Total 950 ml 800 ml 550 ml # Bowel Movements 0 1 0 Physical Exam GENERAL: This is a well-nourished, well-developed patient, in no apparent distress. CARDIOVASCULAR: Regular rate and rhythm without murmurs, gallops, or rubs. RESPIRATORY: Clear to auscultation. Breath sounds equal bilaterally. No wheezes , rales, or rhonchi. GASTROINTESTINAL: Abdomen soft, non-tender, nondistended. Normal active bowel sounds MUSCULOSKELETAL: trace edema NEURO: Alert & Oriented x4 to person, place, time, situation. Moves all ext x4 Imaging Last Impressions Myocardial Perfusion Scan Nuc Med 09/11/17 0600 Signed Impressions: Service Date/Time: Monday, September 11, 2017 10:43 - CONCLUSION: Dilated cardiomyopathy. No definite ischemia RISK CATEGORY: High (>3%% Annual Mortality Rate) Toribio Eller MD Liver Ultrasound 09/10/17 0000 Signed Impressions: Service Date/Time: Sunday, September 10, 2017 09:53 - CONCLUSION: 1. Enlarged echogenic liver likely hepatic steatosis/hepatocellular dysfunction. 2. Nonvisualization of pancreas. 3. Status post cholecystectomy. Luis Enriquez MD Abdomen Ultrasound 09/09/17 0000 Signed Impressions: Service Date/Time: Saturday, September 09, 2017 07:58 - CONCLUSION: Minimal ascites but not enough to safely perform paracentesis. Luis Enriquez MD Chest X-Ray 09/08/17 1236 Signed Impressions: Service Date/Time: Friday, September 08, 2017 13:10 - CONCLUSION: 1. Moderate cardiomegaly 2. Mild basilar air space disease 3. No evidence of free air. Rene Armijo MD Abdomen/Pelvis CT 09/08/17 1236 Signed Impressions: Service Date/Time: Friday, September 08, 2017 14:02 - CONCLUSION: 1. Bilateral effusions, mild ascites and developing anasarca 2. Hepatomegaly with diffuse abnormal hepatic texture. 3. 3 cm left adrenal myelolipoma status post cholecystectomy. Rene Armijo MD Chest Ultrasound 09/08/17 0000 Signed Impressions: Service Date/Time: Friday, September 08, 2017 19:44 - CONCLUSION: Small left pleural effusion confirmed sonographically. Valeriano Stone MD Assessment and Plan Problem List: (1) Dilated cardiomyopathy ICD Codes: I42.0 - Dilated cardiomyopathy Plan: LVEF < 20%; life vest in place; on coreg/entresto; non-ischemic by nuc stress (2) Congestive heart failure ICD Codes: I50.9 - Heart failure, unspecified Status: Acute Plan: currently compensated. (3) Urinary retention ICD Codes: R33.9 - Retention of urine, unspecified Plan: will write flomax, he likely will need to see urology; nurse to bladder scan; further mgt by medial team Assessment and Plan Ok to d/c from cardiac standpoint if voids, he can see me in the office in 1-2 weeks. Problem Qualifiers (1) Congestive heart failure: Qualified Codes: I50.9 - Heart failure, unspecified Marino Mortensen MD Sep 12, 2017 17:18
[2017-09-12] MEDS: TAMSULOSIN HCL 0.4 MG CAP PO SCH (18:43)
[2017-09-12] MEDS: guaiFENesin/CODEINE SYRUP 200 MG/20 MG/10 ML CUP PO PRN (20:41)
[2017-09-12] MEDS: ATORVASTATIN 10 MG TAB PO SCH (20:41)
[2017-09-12] MEDS ORDERED: INSULIN DETEMIR 100 UNITS/ML VIAL SQ SCH (21:00)
[2017-09-13] VITALS (7 sets, daily range): BP systolic 93–106; BP diastolic 61–82; PULSE 87–102; RESP 18–20; TEMP 97.2–98.1; O2SAT 95–97
[2017-09-13] MEDS: MAGNESIUM HYDROXIDE SUSP 30 ML CUP PO PRN (03:32)
[2017-09-13 07:28] LABS: ALBUMIN 3.1 GM/DL (3.4-5.0); ALKALINE PHOSPHATASE 70 U/L (45-117); ALT (GPT) 56 U/L (12-78); AST (GOT) 25 U/L (15-37); BICARBONATE 26.2 MEQ/L (21.0-32.0); BLOOD UREA NITROGEN 36 MG/DL (7-18); CALCIUM 7.8 MG/DL (8.5-10.1); CHLORIDE 96 MEQ/L (98-107); CREATININE 0.99 MG/DL (0.60-1.30); GLOMERULAR FILTRATION RATE 77 ML/MIN (>89); GLUCOSE,RANDOM 162 MG/DL (74-106); MAGNESIUM 1.9 MG/DL (1.5-2.5); SODIUM (NA) 131 MEQ/L (136-145); TOTAL PROTEIN 6.5 GM/DL (6.4-8.2)
[2017-09-13] MEDS: INSULIN ASPART SUPPLEMENTAL SCALE SQ SCH ×2 (08:00→11:34)
[2017-09-13] MEDS: guaiFENesin/CODEINE SYRUP 200 MG/20 MG/10 ML CUP PO PRN (08:23)
[2017-09-13] MEDS: CARVEDILOL 3.125 MG TAB PO SCH (08:24)
[2017-09-13] MEDS: TAMSULOSIN HCL 0.4 MG CAP PO SCH (08:24)
[2017-09-13] MEDS: SACUBITRIL/VALSARTAN 24 MG-26 MG TAB PO SCH (08:24)
[2017-09-13] MEDS: DOCUSATE SODIUM 50 MG/SENNA 8.6 MG TAB PO SCH (08:27)
[2017-09-13] MEDS: SODIUM CHLORIDE 0.9% FLUSH 10 ML FLUSH IV FLUSH SCH (08:28)
[2017-09-13] MEDS ORDERED: FUROSEMIDE 40 MG TAB PO SCH (09:00)
[2017-09-13] MEDS: RESP: ALBUTEROL 2.5 MG/IPRATROPIUM 0.5 MG NEB (SCH) NEB (09:28)
[2017-09-13] MEDS ORDERED: POTASSIUM CHLORIDE 20 MEQ CONTROLLED RELEASE TAB PO ONE (09:30)
--- NOTE | 2017-09-13 10:58 | HHI.PR ---
Objective Vitals Vital Signs Date Time Temp Pulse Resp B/P (MAP) Pulse Ox O2 Delivery O2 Flow Rate FiO2 09/13/17 07:50 97.2 95 20 106/65 (79) 97 09/13/17 04:00 87 09/13/17 04:00 97.2 96 20 100/82 (88) 97 09/13/17 04:00 Room Air 09/13/17 00:00 Room Air 09/13/17 00:00 95 09/13/17 00:00 97.7 90 20 100/74 (83) 95 09/12/17 21:58 98 09/12/17 20:00 Room Air 09/12/17 20:00 97.5 100 18 110/78 (89) 95 09/12/17 16:00 97.1 99 20 94/63 (73) 96 09/12/17 12:00 98.2 101 20 94/61 (72) 93 I/O 09/12/17 09/12/17 09/12/17 09/13/17 09/13/17 09/13/17 07:00 15:00 23:00 07:00 15:00 23:00 Intake Total 480 ml 480 ml 480 ml Output Total 550 ml 700 ml 400 ml 300 ml Balance -70 ml -220 ml 80 ml -300 ml Intake Oral 480 ml 480 ml 480 ml Output Urine Total 550 ml 700 ml 400 ml 300 ml Bladder Scan Volume Amount 5 ml 93 ml 10 ml 98 ml 93 ml # Bowel Movements 0 1 0 Result Diagram: 09/10/17 1443 09/13/17 0555 Objective Remarks GENERAL: This is a well-nourished, well-developed patient, in no apparent distress. SKIN: Warm and dry CARDIOVASCULAR: Regular rate and rhythm without murmurs, gallops, or rubs. RESPIRATORY: No wheezes, rales, or rhonchi. GASTROINTESTINAL: Abdomen soft, non-tender. Bowel Sounds active. Protuberant abdomen MUSCULOSKELETAL: Extremities without clubbing, cyanosis. Bilateral lower extremities with 2-3+ edema. NEUROLOGICAL: Awake and alert. Oriented to time, place, person. No focal neuro deficit. Moves all extremities. Normal speech. Procedures None A/P Problem List: (1) Congestive heart failure ICD Code: I50.9 - Heart failure, unspecified Status: Acute (2) Ascites ICD Code: R18.8 - Other ascites Assessment and Plan 62-year-old male with a history of diabetes type 2, hypertension, hyperlipidemia presented to the ED for evaluation of 3 weeks history of abdominal bloating, shortness of breath and constipation. New onset acute systolic congestive heart failure. Clinically stabl3 Chest x-ray with moderated cardiomegaly. Bilateral pleural effusions noted on US. 2-D echo with EF < 20%, global hypokinesis. Cardiology consult appreciated. - Lasix IV, strict I's and O's. - stress test pending. - continue cardiac regimen with lasix, coreg and entresto. - LifeVest upon discharge. - telemetry. Constipation, abdominal bloating Resolved. - Bowel regimen. Diabetes type 2 Hemoglobin A1c 6.9%. - Dc metformin 1000 mg twice a day, and restart glimepiride RN to verify dose - Insulin sliding scale. - Increase Levemir to 20 units daily at bedtime for better control. New onset Ascites CT abdomen/pelvis with finding of mild ascites. Ultrasound of the abdomen showed minimal ascites not enough to safely perform paracentesis. US with hepatic steatosis/ hepatocellular dysfunction. - Hepatitis profile negative - IV Lasix - Trend LFTs(transaminitis could also be from congestion). Urinary retention. Discontinue Chi catheter. Increase activity. Consider Flomax DVT prophylaxis: SCDs Discharge Planning Possible discharge today if stress test negative in light best arranged. May need home care visiting nurse for Chi catheter care if unable to void Problem Qualifiers (1) Congestive heart failure: Qualified Codes: I50.9 - Heart failure, unspecified Aki Cunningham MD Sep 13, 2017 10:58
[2017-09-13] MEDS ORDERED: TAMS5CAP PO (11:23)
[2017-09-13] MEDS ORDERED: SOD PHOSPHATE/SOD BIPHOSPHATE (ADULT) ENEMA 133ML RECTAL ONE (11:35)
== END 2017-09-13 13:31 | disposition home health service (06) | DRG 292 ==
LOC: NEPC 11:04 → NEDA 18:21 → NEPHCDU 20:17 → OBSVTOIN 09-10 13:06 → N04B 09-10 15:30
PROVIDERS: ADMIT Internal Medicine; ATTEND Internal Medicine
DX: I11.0 Hypertensive heart disease with heart failure (principal); Z68.42 Body mass index [BMI] 45.0-49.9, adult; R18.8 Other ascites; E11.65 Type 2 diabetes mellitus with hyperglycemia; R16.0 Hepatomegaly, not elsewhere classified; I42.0 Dilated cardiomyopathy; I50.21 Acute systolic (congestive) heart failure; E66.9 Obesity, unspecified; E78.5 Hyperlipidemia, unspecified; K59.00 Constipation, unspecified; R33.9 Retention of urine, unspecified; K76.0 Fatty (change of) liver, not elsewhere classified; Z79.84 Long term (current) use of oral hypoglycemic drugs
CPT/HCPCS: 71045; 74177; 76604; 76705; 78452; 80048; 80053; 80061; 80074; 81001; 82550; 82948; 83036; 83615; 83690; 83735; 83880; 84155; 84484; 85007; 85025; 85027; 85610; 85730; 93005; 93017; 93306; 94640; 94664; 96361; 96372; 96374; 96375; 96376; A9502; G0378; J1815; J1940; J2405; J2785; J7040; Q9967